=== PATIENT | female | born 1970 | race Caucasian/White ===

== ENCOUNTER 2021-07-29 15:23 | Inpatient (IN) | payer OTHER ==
[~2021-07-29] VITALS: Ht 171.4 cm; Wt 84.5 kg
[~2021-07-29 15:23] MED LIST: DEXT10TA23 PO; LAMO200T6 PO; LAMO25TA5 PO; LEVO125T5 PO; LEVO25TA55 PO; LORA0.5T96 PO; LORA1TAB PO; TRIA0.25 PO
[2021-07-29 16:05] LABS: HEMATOCRIT 40.7 % (36.0-47.0); HEMOGLOBIN 13.2 g/dL (12.0-15.5); MEAN CORPUSCULAR HEMOGLOBIN 27 pg (25-35); MEAN CORPUSCULAR HGB CONC 32 g/dL (31-37); MEAN CORPUSCULAR VOLUME 83 fL (79-100); NEUT % 69 % (31-73); PLATELET COUNT 334 x10^3/uL (140-400); RED BLOOD COUNT 4.89 x10^6/uL (3.50-5.40); RED CELL DISTRIBUTION WIDTH 16.2 % (11.5-14.5); WHITE BLOOD COUNT 8.6 x10^3/uL (4.0-11.0)
[2021-07-29 16:06] LABS: BASO # 0.1 x10^3/uL (0.0-0.2); BASO % 1 % (0-3); EOS # 0.1 x10^3/uL (0.0-0.7); EOS % 1 % (0-3); LYMPH # 2.1 x10^3/uL (1.0-4.8); LYMPH % 24 % (24-48); MONO # 0.5 x10^3/uL (0.0-1.1); MONO % 6 % (0-9); NEUT # 5.9 x10^3/uL (1.8-7.7)
[2021-07-29] MEDS ORDERED: IV NORMAL SALINE 1000ML BAG 1,000 ML IV ONE (16:15)
[2021-07-29 16:35] LABS: CALCIUM 9.4 mg/dL (8.5-10.1); GFR 58.9; POTASSIUM 3.5 mmol/L (3.5-5.1)
--- NOTE | 2021-07-29 16:35 | RAD ---
Single view chest dated 07/29/2021 4:32 PM: COMPARISON: 03/26/2017 Clinical Indication: Pain and shortness of breath. Findings: Single upright portable exam of the chest was performed. Heart size and mediastinal contours are with in normal limits. Lungs are clear. No consolidation or pleural effusion. No pneumothorax. IMPRESSION: No acute radiographic abnormality. Electronically signed by: Stefano Pineda MD (07/29/2021 4:33 PM) [facility]
[2021-07-29 16:41] LABS: ALBUMIN 4.4 g/dL (3.4-5.0); DIRECT BILIRUBIN 0.2 mg/dL (0.0-0.2); TOTAL BILIRUBIN 0.8 mg/dL (0.2-1.0); TOTAL PROTEIN 8.2 g/dL (6.4-8.2)
[2021-07-29] MEDS ORDERED: ASPIRIN 325 MG TABLET PO ONE (16:45)
[2021-07-29 16:51] LABS: PREG TEST PT QUAL NEGATIVE (NEG)
[2021-07-29] MEDS ORDERED: IOHEXOL 350 MG/ML 100 ML VIAL. IV ONE (17:00)
[2021-07-29] MEDS ORDERED: CONTRAST GIVEN. MC PRN (17:15)
--- NOTE | 2021-07-29 17:49 | RAD ---
CTA chest abdomen pelvis with contrast dated 07/29/2021. COMPARISON: None. INDICATION: Jaw pain and shortness of breath. TECHNIQUE: Continues axial imaging the chest abdomen pelvis performed after the administration of 100 cc Omnipaq ue 350. Study was performed as dedicated CTA with thin cut coronal and sagittal MIPS reconstruction a nd 3-D rotational reconstruction. One or more of the following individualized dose reduction techniques were utilized for this examinat ion: 1. Automated exposure control 2. Adjustment of the mA and/or kV according to patient size 3. Use of iterative reconstruction technique FINDINGS: Contrast bolus is adequate. Ascending aorta is normal in caliber. No intimal flap or periaortic fluid collection. Heart size within normal limits. No pericardial effusion. No mediastinal, hilar or axill myra lymphadenopathy. The great vessels off the aortic arch are patent. Abdominal aorta is normal in caliber. There are mild atherosclerotic calcifications of the abdominal aorta. No evidence of aneurysm or periaortic fluid collection. No intimal flap. There is moderate genie rowing of the celiac artery origin due to soft plaque. The SMA is patent. Bilateral renal arteries ar e grossly patent. MYLES is patent. The bilateral iliac vessels are patent. Central airways are patent. Lungs are clear. There is a noncalcified pulmonary nodule in the right lo wer lobe on image 79 measures 4 mm. No consolidation or pleural effusion. No pneumothorax. Liver and spleen are homogeneous. No focal hepatic mass. There is some low density near the falciform ligament consistent with focal fat. The gallbladder is unremarkable. Pancreas, adrenal glands and kidneys are unremarkable. No hydronephrosis. Unopacified GI tract normal in caliber and contour. No bowel wall thickening. The appendix is normal in caliber. No ascites or lymphadenopathy. Images of pelvis show nondistended urinary bladder. Uterus and adnexa are unremarkable. No free fluid or lymphadenopathy. Bone windows show no acute finding IMPRESSION: 1. No acute abnormality of chest abdomen or pelvis. No evidence of aortic dissection. 2. Mild atherosclerotic changes. 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 3. There is a small noncalcified pulmonary nodule in the right lower lobe, nonspecific. Follow-up myles ging may be warranted based on risk factors. Electronically signed by: Stefano Pineda MD (07/29/2021 5:46 PM) [facility]
--- NOTE | 2021-07-29 18:20 | PDOC1 ---
History and Physical Date of Admission Date of Admission DATE: 07/29/21 TIME: 18:19 Identification/Chief Complaint Chief Complaint Shortness of breath Source Source: Patient History of Present Illness History of Present Illness Ms Welch is a 50-year-old female w/ PMHx hyperlipidemia, hypothyroidism, anxiety and bipolar disorder who comes to ED c/o shortness of breath. She then complains of multiple other symptoms. She has had shortness of breath on exertion for the past 2 days prior to presentation with associated nausea, left- sided jaw pain, mild left-sided arm numbness, and diaphoresis. She has had epigastric abdominal pain for more than a month and will be seeing gastroenterology next week. Patient denies associated fevers, vomiting, upper respiratory congestion/rhinorrhea, cough, sore throat, shortness of breath, flank pain, back pain, pain or swelling to arms or legs. Vital signs are appropriate here and she is in no acute distress. EKG appears sinus rhythm, no acute ST elevation, minimal nonspecific, nonanatomic ST changes, SD 144, QRS 90, QTc 441, EP interpretation. Labs with no abnormalities. UDS positive for opiates and THC. CT chest abdomen and pelvis with no acute abnormalities Past Medical History Cardiovascular: Hyperlipidemia Psych: Anxiety, Bipolar Endocrine: Hypothyroidism Past Surgical History Past Surgical History: Tubal Ligation Family History Family History: High Cholestrol, Hypothyroidism Social History Smoke: No ALCOHOL: none Drugs: None Current Medications Current Medications Current Medications Aspirin (Ana Aspirin) 325 mg 1X ONCE PO Last administered on 07/29/21at 16:45; Start 07/29/21 at 16:45; Stop 07/29/21 at 16:46; Status DC Sodium Chloride 1,000 ml @ 1,000 mls/hr 1X ONCE IV Last administered on 07/29/21at 17:56; Start 07/29/21 at 16:15; Stop 07/29/21 at 17:14; Status DC Iohexol (Omnipaque 350 Mg/ml) 100 ml 1X ONCE IV Last administered on 07/29/21at 17:21; Start 07/29/21 at 17:00; Stop 07/29/21 at 17:01; Status DC Info (CONTRAST GIVEN -- Rx MONITORING) 1 each PRN DAILY PRN MC SEE COMMENTS; Start 07/29/21 at 17:15; Stop 07/31/21 at 17:14 Active Scripts Active Reported Halcion (Triazolam) 0.25 Mg Tablet 0.25 Mg PO HS Adderall 10 Mg Tablet (Dextroamphetamine/Amphetamine) 10 Mg Tablet 10 Mg PO BIDAFTMEAL PRN PRN Levothyroxine Sodium 125 Mcg Tablet 125 Mcg PO DAILYAC Lorazepam 1 Mg Tablet 1 Mg PO TID PRN PRN Lamotrigine 200 Mg Tablet 200 Mg PO BID Allergies Allergies: Coded Allergies: aspartame (Verified Allergy, Severe, TONGUE SWELLING, 03/26/17) saccharin (Verified Allergy, Severe, TONGUE SWELLING, 03/26/17) sucralose (Verified Allergy, Severe, TONGUE SWELLING, 03/26/17) quetiapine (Verified Adverse Reaction, Intermediate, restless legs, 03/26/17) zolpidem (Verified Adverse Reaction, Intermediate, restless legs, 03/26/17) ROS General: YES: Fatigue, Malaise; No: Chills, Night Sweats, Appetite, Other PSYCHOLOGICAL ROS: YES: Anxiety, Behavioral Disorder, Concentration difficultie , Depression, Irritablity, Memory difficulties, Mood Swings, Obsessive thoughts; No: Decreased libido, Disorientation, Hallucinations, Hostility, Physical abuse, Sexual abuse, Sleep disturbances, Suicidal ideation, Other Eyes: No Blurry vision, No Decreased vision, No Double vision, No Dry eyes, No Excessive tearing, No Eye Pain, No Itchy Eyes, No Loss of vision, No Photophobia, No Scotomata, No Uses contacts, No Uses glasses, No Other HEENT: No: Heacaches, Visual Changes, Hearing change, Nasal congestion, Nasal discharge, Oral lesions, Sinus pain, Sore Throat, Epistaxis, Sneezing, Snoring, Tinnitus, Vertigo, Vocal changes, Other ALLERGY AND IMMUNOLOGY: No: Hives, Insect Bite Sensitivity, Itchy/Watery Eyes, Nasal Congestion, Post Nasal Drip, Seasonal Allergies, Other Hematological and Lymphatic: No: Bleeding Problems, Blood Clots, Blood Transfusions, Brusing, Night Sweats, Pallor, Swollen Lymph Nodes, Other ENDOCRINE: No: Breast Changes, Galactorrhea, Hair Pattern Changes, Hot Flashes, Malaise/lethargy, Mood Swings, Palpitations, Polydipsia/polyuria, Skin Changes, Temperature Intolerance, Unexpected Weight Changes, Other Breast: No New/Changing Breast Lumps, No Nipple changes, No Nipple discharge, No Other Respiratory: YES: Shortness of breath, SOB with excertion; No: Cough, Hemoptysis, Orthopnea, Pleuritic Pain, Sputum Changes, Stridor, Tachypnea, Wheezing, Other Cardiovascular: yes Palpitations; No Chest Pain, No Orthopnea, No Paroxysmal Noc. Dyspnea, No Edema, No Lt Headedness, No Other Gastrointestinal: Yes Nausea, Yes Abdominal Pain; No Vomiting, No Diarrhea, No Constipation, No Melena, No Hematochezia, No Other Genitourinary: No Dysuria, No Frequency, No Incontinence, No Hematuria, No Retention, No Discharge, No Urgency, No Pain, No Flank Pain, No Other, No , No , No , No , No , No , No Musculoskeletal: No Gait Disturbance, No Joint Pain, No Joint Stiffness, No Joint Swelling, No Muscle Pain, No Muscular Weakness, No Pain In:, No Swelling In:, No Other Neurological: No Behavorial Changes, No Bowel/Bladder ControlChng, No Confusion, No Dizziness, No Gait Disturbance, No Headaches, No Impaired Coord/balance, No Memory Loss, No Numbness/Tingling, No Seizures, No Speech Problems, No Tremors, No Visual Changes, No Weakness, No Other Skin: No Dry Skin, No Eczema, No Hair Changes, No Lumps, No Mole Changes, No Mottling, No Nail Changes, No Pruritus, No Rash, No Skin Lesion Changes, No Other, No Acne Physical Exam General: Alert, Oriented X3, Cooperative, moderate distress HEENT: Atraumatic, PERRLA, EOMI, Mucous membr. moist/pink Lungs: Clear to auscultation, Normal air movement Heart: S1S2, RRR, no thrills, no rubs, no gallops, no murmurs Abdomen: Normal bowel sounds, Soft, No tenderness, No hepatosplenomegaly, No masses Rectal Exam: not examined Extremities: No clubbing, No cyanosis, No edema, Normal pulses, No tenderness/swelling Skin: No rashes, No breakdown, No significant lesion Neuro: Normal gait, Normal speech, Strength at 5/5 X4 ext, Normal tone, Sensation intact, Cranial nerves 3-12 NL, Reflexes 2+ Psych/Mental Status: Mental status NL, Mood NL, Other (circumferential, tangential, pressured speech) Vitals Vitals Vital Signs Date Time Temp Pulse Resp B/P (MAP) Pulse Ox O2 Delivery O2 Flow Rate FiO2 07/29/21 15:23 98.2 90 24 175/93 (120) 98 Room Air 98.2 Labs Labs Laboratory Tests Test 07/29/21 15:50 07/29/21 18:02 White Blood Count 8.6 x10^3/uL (4.0-11.0) Red Blood Count 4.89 x10^6/uL (3.50-5.40) Hemoglobin 13.2 g/dL (12.0-15.5) Hematocrit 40.7 % (36.0-47.0) Mean Corpuscular Volume 83 fL (79-100) Mean Corpuscular Hemoglobin 27 pg (25-35) Mean Corpuscular Hemoglobin Concent 32 g/dL (31-37) Red Cell Distribution Width 16.2 % (11.5-14.5) Platelet Count 334 x10^3/uL (140-400) Neutrophils (%) (Auto) 69 % (31-73) Lymphocytes (%) (Auto) 24 % (24-48) Monocytes (%) (Auto) 6 % (0-9) Eosinophils (%) (Auto) 1 % (0-3) Basophils (%) (Auto) 1 % (0-3) Neutrophils # (Auto) 5.9 x10^3/uL (1.8-7.7) Lymphocytes # (Auto) 2.1 x10^3/uL (1.0-4.8) Monocytes # (Auto) 0.5 x10^3/uL (0.0-1.1) Eosinophils # (Auto) 0.1 x10^3/uL (0.0-0.7) Basophils # (Auto) 0.1 x10^3/uL (0.0-0.2) Sodium Level 141 mmol/L (136-145) Potassium Level 3.5 mmol/L (3.5-5.1) Chloride Level 104 mmol/L (98-107) Carbon Dioxide Level 19 mmol/L (21-32) Anion Gap 18 (6-14) Blood Urea Nitrogen 12 mg/dL (7-20) Creatinine 1.0 mg/dL (0.6-1.0) Estimated GFR (Cockcroft-Gault) 58.9 Glucose Level 134 mg/dL (70-99) Calcium Level 9.4 mg/dL (8.5-10.1) Total Bilirubin 0.8 mg/dL (0.2-1.0) Direct Bilirubin 0.2 mg/dL (0.0-0.2) Aspartate Amino Transf (AST/SGOT) 11 U/L (15-37) Alanine Aminotransferase (ALT/SGPT) 21 U/L (14-59) Alkaline Phosphatase 61 U/L (46-116) Troponin I High Sensitivity 10 ng/L (4-50) Total Protein 8.2 g/dL (6.4-8.2) Albumin 4.4 g/dL (3.4-5.0) Serum Test, Qualitative Negative (NEG) Bedside Urine HCG, Qualitative Hcg negative (Negative) Laboratory Tests Test 07/29/21 15:50 07/29/21 18:02 White Blood Count 8.6 x10^3/uL (4.0-11.0) Red Blood Count 4.89 x10^6/uL (3.50-5.40) Hemoglobin 13.2 g/dL (12.0-15.5) Hematocrit 40.7 % (36.0-47.0) Mean Corpuscular Volume 83 fL (79-100) Mean Corpuscular Hemoglobin 27 pg (25-35) Mean Corpuscular Hemoglobin Concent 32 g/dL (31-37) Red Cell Distribution Width 16.2 % (11.5-14.5) Platelet Count 334 x10^3/uL (140-400) Neutrophils (%) (Auto) 69 % (31-73) Lymphocytes (%) (Auto) 24 % (24-48) Monocytes (%) (Auto) 6 % (0-9) Eosinophils (%) (Auto) 1 % (0-3) Basophils (%) (Auto) 1 % (0-3) Neutrophils # (Auto) 5.9 x10^3/uL (1.8-7.7) Lymphocytes # (Auto) 2.1 x10^3/uL (1.0-4.8) Monocytes # (Auto) 0.5 x10^3/uL (0.0-1.1) Eosinophils # (Auto) 0.1 x10^3/uL (0.0-0.7) Basophils # (Auto) 0.1 x10^3/uL (0.0-0.2) Sodium Level 141 mmol/L (136-145) Potassium Level 3.5 mmol/L (3.5-5.1) Chloride Level 104 mmol/L (98-107) Carbon Dioxide Level 19 mmol/L (21-32) Anion Gap 18 (6-14) Blood Urea Nitrogen 12 mg/dL (7-20) Creatinine 1.0 mg/dL (0.6-1.0) Estimated GFR (Cockcroft-Gault) 58.9 Glucose Level 134 mg/dL (70-99) Calcium Level 9.4 mg/dL (8.5-10.1) Total Bilirubin 0.8 mg/dL (0.2-1.0) Direct Bilirubin 0.2 mg/dL (0.0-0.2) Aspartate Amino Transf (AST/SGOT) 11 U/L (15-37) Alanine Aminotransferase (ALT/SGPT) 21 U/L (14-59) Alkaline Phosphatase 61 U/L (46-116) Troponin I High Sensitivity 10 ng/L (4-50) Total Protein 8.2 g/dL (6.4-8.2) Albumin 4.4 g/dL (3.4-5.0) Serum Test, Qualitative Negative (NEG) Bedside Urine HCG, Qualitative Hcg negative (Negative) Images Images CTA chest abdomen pelvis with contrast dated 07/29/2021. Contrast bolus is adequate. Ascending aorta is normal in caliber. No intimal flap or periaortic fluid collection. Heart size within normal limits. No pericardial effusion. No mediastinal, hilar or axillary lymphadenopathy. The great vessels off the aortic arch are patent. Abdominal aorta is normal in caliber. There are mild atherosclerotic calcifications of the abdominal aorta. No evidence of aneurysm or periaortic fluid collection. No intimal flap. There is moderate narrowing of the celiac artery origin due to soft plaque. The SMA is patent. Bilateral renal arteries are grossly patent. MYLES is patent. The bilateral iliac vessels are patent. Central airways are patent. Lungs are clear. There is a noncalcified pulmonary nodule in the right lower lobe on image 79 measures 4 mm. No consolidation or pleural effusion. No pneumothorax. Liver and spleen are homogeneous. No focal hepatic mass. There is some low density near the falciform ligament consistent with focal fat. The gallbladder is unremarkable. Pancreas, adrenal glands and kidneys are unremarkable. No hydronephrosis. Unopacified GI tract normal in caliber and contour. No bowel wall thickening. The appendix is normal in caliber. No ascites or lymphadenopathy. Images of pelvis show nondistended urinary bladder. Uterus and adnexa are unremarkable. No free fluid or lymphadenopathy. Bone windows show no acute finding IMPRESSION: 1. No acute abnormality of chest abdomen or pelvis. No evidence of aortic dissection. 2. Mild atherosclerotic changes. 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 3. There is a small noncalcified pulmonary nodule in the right lower lobe, nonspecific. Follow-up imaging may be warranted based on risk factors. VTE Prophylaxis Ordered VTE Prophylaxis Devices: No VTE Pharmacological Prophylaxi: Yes Assessment/Plan Assessment/Plan Shortness of breath - concerning for anginal equivalent given normal imaging and respiratory examination. Could be anxiety or somatization related as well Abdominal pain - possibly PUD related, will cont PPI. F/u with GI outpatient as scheduled Left leg pain - not reproducible on examination, negative andrea sign Hyperlipidemia - cont statin Hypothyroidism - cont levothyroxine Anxiety and bipolar disorder - previously on lamictal, she has taken herself off for no clear reason Opioid and THC positive urine - patient denies any use or prescriptions FEN - Cardiac diet PPX - lovenox FULL CODE Dispo - observation Justifications for Admission Other Justification JOHN LATIF MD Jul 29, 2021 18:20
[2021-07-29 18:23] LABS: BILIRUBIN,URINE NEGATIVE (NEG); CLARITY,URINE CLEAR; COLOR,URINE YELLOW
[2021-07-29 18:24] LABS: NITRITE,URINE NEGATIVE (NEG); PROTEIN,URINE 30 mg/dL (NEG-TRACE); UROBILINOGEN,URINE 0.2 mg/dL (0.2 mg/dL)
--- NOTE | 2021-07-29 18:25 | PHYS DOC ---
Past Medical History Past Medical History: Anxiety, Bipolar, Hyperthyroid, Other Additional Past Medical Histor: Bipolar II Past Surgical History: Tubal ligation Smoking Status: Never Smoker Alcohol Use: None Drug Use: None Adult General Chief Complaint Chief Complaint: SHORTNESS OF BREATH HPI HPI The patient is a 50-year-old female with a history of hyperlipidemia, hypothyr oidism and bipolar disorder who presents for evaluation of multiple symptoms with onset earlier today. Symptoms have included shortness of breath with minimal exertion, left-sided jaw pain, mild left-sided arm numbness, nausea, and intermittent diaphoresis. Patient reports that symptoms occur in the setting of intermittent upper abdominal pain for more than a month. She has not had any imaging or endoscopy for this issue yet but is supposed to see GI in the near future. Today she reports some lower abdominal pain on the left side in association with the symptoms mentioned above, new. This, she notes, has been mild. Patient denies associated fevers, vomiting, upper respiratory congestio n/rhinorrhea, cough, sore throat, shortness of breath, flank pain, back pain, pain or swelling to arms or legs. Vital signs are appropriate here and she is in no acute distress. Review of Systems Review of Systems A 12 point review of systems was completed and was negative except where noted in HPI above. Current Medications Current Medications Current Medications Medications (Trade) Dose Ordered Sig/Obed Start Time Stop Time Status Last Admin Dose Admin Aspirin (Ana Aspirin) 325 mg 1X ONCE 07/29/21 16:45 07/29/21 16:46 DC 07/29/21 16:45 325 MG Info (CONTRAST GIVEN -- Rx MONITORING) 1 each PRN DAILY PRN 07/29/21 17:15 07/31/21 17:14 Iohexol (Omnipaque 350 Mg/ml) 100 ml 1X ONCE 07/29/21 17:00 07/29/21 17:01 DC 07/29/21 17:21 100 ML Sodium Chloride 1,000 ml @ 1,000 mls/hr 1X ONCE 07/29/21 16:15 07/29/21 17:14 DC 07/29/21 17:56 1,000 MLS/HR Allergies Allergies Allergies Coded Allergies Type Severity Reaction Last Updated Verified aspartame Allergy Severe TONGUE SWELLING 03/26/17 Yes saccharin Allergy Severe TONGUE SWELLING 03/26/17 Yes sucralose Allergy Severe TONGUE SWELLING 03/26/17 Yes quetiapine Adverse Reaction Intermediate restless legs 03/26/17 Yes zolpidem Adverse Reaction Intermediate restless legs 03/26/17 Yes Physical Exam Physical Exam 50-year-old female appearing nontoxic and in no acute distress. Head is normocephalic and atraumatic. Neck is supple and nontender. Oropharynx is moist. Lungs are clear to auscultation at all stations. There is normal S1 and S2 without rubs or gallops and capillary refill is appropriate, less than 2 seconds globally. Abdomen is soft, nontender nondistended. Skin is warm and dry without cyanosis, clubbing or edema. Psychiatrically, the patient demonstrates appropriate mood and affect and is alert. Evaluation of the extremities reveals BUEs and BLEs neurovascularly intact distally with strength 5-5, sensation intact light touch in all nerve distributions, radial, DP and PT pulses 2+ equal bilaterally, capillary refill less than 2 seconds, hands and feet warm and well-perfused. No dependent peripheral edema distally. No calf tenderness or swelling bilaterally. Homans test is negative bilaterally. Current Patient Data Vital Signs Vital Signs Date Time Temp Pulse Resp B/P (MAP) Pulse Ox O2 Delivery O2 Flow Rate FiO2 07/29/21 15:23 98.2 90 24 175/93 (120) 98 Room Air 98.2 Lab Values Laboratory Tests Test 07/29/21 15:50 07/29/21 18:02 White Blood Count 8.6 x10^3/uL (4.0-11.0) Red Blood Count 4.89 x10^6/uL (3.50-5.40) Hemoglobin 13.2 g/dL (12.0-15.5) Hematocrit 40.7 % (36.0-47.0) Mean Corpuscular Volume 83 fL (79-100) Mean Corpuscular Hemoglobin 27 pg (25-35) Mean Corpuscular Hemoglobin Concent 32 g/dL (31-37) Red Cell Distribution Width 16.2 % (11.5-14.5) H Platelet Count 334 x10^3/uL (140-400) Neutrophils (%) (Auto) 69 % (31-73) Lymphocytes (%) (Auto) 24 % (24-48) Monocytes (%) (Auto) 6 % (0-9) Eosinophils (%) (Auto) 1 % (0-3) Basophils (%) (Auto) 1 % (0-3) Neutrophils # (Auto) 5.9 x10^3/uL (1.8-7.7) Lymphocytes # (Auto) 2.1 x10^3/uL (1.0-4.8) Monocytes # (Auto) 0.5 x10^3/uL (0.0-1.1) Eosinophils # (Auto) 0.1 x10^3/uL (0.0-0.7) Basophils # (Auto) 0.1 x10^3/uL (0.0-0.2) Sodium Level 141 mmol/L (136-145) Potassium Level 3.5 mmol/L (3.5-5.1) Chloride Level 104 mmol/L (98-107) Carbon Dioxide Level 19 mmol/L (21-32) L Anion Gap 18 (6-14) H Blood Urea Nitrogen 12 mg/dL (7-20) Creatinine 1.0 mg/dL (0.6-1.0) Estimated GFR (Cockcroft-Gault) 58.9 Glucose Level 134 mg/dL (70-99) H Calcium Level 9.4 mg/dL (8.5-10.1) Total Bilirubin 0.8 mg/dL (0.2-1.0) Direct Bilirubin 0.2 mg/dL (0.0-0.2) Aspartate Amino Transferase (AST) 11 U/L (15-37) L Alanine Aminotransferase (ALT) 21 U/L (14-59) Alkaline Phosphatase 61 U/L (46-116) Troponin I High Sensitivity 10 ng/L (4-50) Total Protein 8.2 g/dL (6.4-8.2) Albumin 4.4 g/dL (3.4-5.0) Serum Test, Qualitative Negative (NEG) POC Urine HCG, Qualitative Hcg negative (Negative) Laboratory Tests 07/29/21 15:50 Laboratory Tests 07/29/21 15:50 EKG EKG Sinus rhythm, no acute ST elevation, minimal nonspecific, nonanatomic ST changes, ID 144, QRS 90, QTc 441, EP interpretation. Radiology/Procedures Radiology/Procedures CTA chest abdomen pelvis with contrast dated 07/29/2021. COMPARISON: None. INDICATION: Jaw pain and shortness of breath. TECHNIQUE: Continues axial imaging the chest abdomen pelvis performed after the admini stration of 100 cc Omnipaque 350. Study was performed as dedicated CTA with thin cut coronal and sagittal MIPS reconstruction and 3-D rotational reconstruction. One or more of the following individualized dose reduction techniques were utilized for this examination: 1. Automated exposure control 2. Adjustment of the mA and/or kV according to patient size 3. Use of iterative reconstruction technique FINDINGS: Contrast bolus is adequate. Ascending aorta is normal in caliber. No intimal flap or periaortic fluid collection. Heart size within normal limits. No pericardial effusion. No mediastinal, hilar or axillary lymphadenopathy. The great vessels off the aortic arch are patent. Abdominal aorta is normal in caliber. There are mild atherosclerotic calcifications of the abdominal aorta. No evidence of aneurysm or periaortic fluid collection. No intimal flap. There is moderate narrowing of the celiac artery origin due to soft plaque. The SMA is patent. Bilateral renal arteries are grossly patent. MYLES is patent. The bilateral iliac vessels are patent. Central airways are patent. Lungs are clear. There is a noncalcified pulmonary nodule in the right lower lobe on image 79 measures 4 mm. No consolidation or pleural effusion. No pneumothorax. Liver and spleen are homogeneous. No focal hepatic mass. There is some low density near the falciform ligament consistent with focal fat. The gallbladder is unremarkable. Pancreas, adrenal glands and kidneys are unremarkable. No hydronephrosis. Unopacified GI tract normal in caliber and contour. No bowel wall thickening. The appendix is normal in caliber. No ascites or lymphadenopathy. Images of pelvis show nondistended urinary bladder. Uterus and adnexa are unremarkable. No free fluid or lymphadenopathy. Bone windows show no acute finding IMPRESSION: 1. No acute abnormality of chest abdomen or pelvis. No evidence of aortic dissection. 2. Mild atherosclerotic changes. 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 3. There is a small noncalcified pulmonary nodule in the right lower lobe, nonspecific. Follow-up imaging may be warranted based on risk factors. Electronically signed by: Stefano Pineda MD (07/29/2021 5:46 PM) [facility] [place] DICTATED and SIGNED BY: STEFANO PINEDA MD DATE: 07/29/21 [id number] [] Course & Med Decision Making Course & Med Decision Making Large work-up is without evidence of acute process. Given suspicious possibly anginalequivalent symptoms earlier today with exertion, will bring in for further care on an observation basis. Graciously accepted for admission by Dr. Noland. Suzanna Disclaimer Suzanna Disclaimer This electronic medical record was generated, in whole or in part, using a voice recognition dictation system. Departure Departure Impression: Primary Impression: Anginal equivalent Disposition: ADMITTED INPATIENT Condition: STABLE Referrals: NON,STAFF (PCP) ESME MTZ MD Jul 29, 2021 18:25
[2021-07-29 18:26] LABS: BACTERIA,URINE 0 /HPF (0-FEW); RBC,URINE 0 /HPF (0-2); WBC,URINE 0 /HPF (0-4)
[2021-07-29] MEDS ORDERED: ONDANSETRON PF 4 MG/2 ML VIAL. IVP PRN (18:30)
[2021-07-29] MEDS ORDERED: ACETAMINOPHEN 325 MG TABLET. PO PRN ×2 (18:30→19:00)
[2021-07-29] MEDS ORDERED: LIDO:MAALOX 1:1 20 ML SINGLE DOSE. SWSW ONE (19:15)
[2021-07-29 19:23] LABS: BARBITURATES NEG (NEG); BENZODIAZEPINES NEG (NEG); CANNABINOIDS POS (NEG); COCAINE NEG (NEG); METHADONE NEG (NEG); OPIATES POS (NEG); PHENCYCLIDINE NEG (NEG)
[2021-07-29 19:25] LABS: AMPHETAMINE/METHAMPHETAMINE NEG (NEG)
[2021-07-29 20:11] VITALS: BP 121/71
[2021-07-29 23:00] VITALS: BP 123/63
[2021-07-30 02:09] LABS: BASO % 1 % (0-3); EOS # 0.1 x10^3/uL (0.0-0.7); EOS % 1 % (0-3); HEMATOCRIT 36.9 % (36.0-47.0); HEMOGLOBIN 12.1 g/dL (12.0-15.5); LYMPH # 2.2 x10^3/uL (1.0-4.8); LYMPH % 28 % (24-48); MEAN CORPUSCULAR HEMOGLOBIN 27 pg (25-35); MEAN CORPUSCULAR HGB CONC 33 g/dL (31-37); MEAN CORPUSCULAR VOLUME 83 fL (79-100); MONO # 0.5 x10^3/uL (0.0-1.1); MONO % 7 % (0-9); NEUT # 5.1 x10^3/uL (1.8-7.7); NEUT % 64 % (31-73); PLATELET COUNT 288 x10^3/uL (140-400); RED BLOOD COUNT 4.48 x10^6/uL (3.50-5.40); RED CELL DISTRIBUTION WIDTH 15.9 % (11.5-14.5); WHITE BLOOD COUNT 7.9 x10^3/uL (4.0-11.0)
[2021-07-30 02:48] VITALS: BP 126/57
[2021-07-30 03:07] LABS: CALCIUM 8.5 mg/dL (8.5-10.1); CREATININE 0.9 mg/dL (0.6-1.0); GFR 66.5; POTASSIUM 3.5 mmol/L (3.5-5.1)
[2021-07-30] MEDS ORDERED: fentaNYL PF VIAL 100 MCG/2 ML VIAL IVP PRN (04:00)
[2021-07-30] MEDS: ONDANSETRON PF 4 MG/2 ML VIAL. IVP PRN (04:35)
[2021-07-30] MEDS: traMADol 50 MG TABLET PO PRN (06:37)
[2021-07-30 07:00] VITALS: BP 114/59
[2021-07-30] MEDS ORDERED: NITROGLYCERIN SUBLINGUAL 0.4 MG BOTTLE OF 25. SL PRN (07:00)
--- NOTE | 2021-07-30 09:38 | PDOC2 ---
CONSULT Date of Consult Date of Consult DATE: 07/30/21 TIME: 09:38 Reason for Consult Reason for Consult: Shortness of breath Referring Physician Referring Physician: Dr. Noland Identification/Chief Complaint Chief Complaint Abdominal pain and shortness of breath Source Source: Chart review, Patient History of Present Illness Reason for Visit: 50-year-old female without any previous cardiac history presented complaining of abdominal pain that she described as burning in sensation, constant without any relation to food intake. She also complained of associated shortness of breath not related to exertion. She has been having intermittent episodes of aching pain in her jaw, back pain and left arm tingling. The symptoms are also not related to exertion. She is currently scheduled to see gastroenterology team next week. She denied any orthopnea/PND, palpitations, syncope or claudication. Past Medical History Cardiovascular: Hyperlipidemia Psych: Anxiety, Bipolar Endocrine: Hypothyroidism Past Surgical History Past Surgical History: Tubal Ligation Family History Family History: High Cholestrol, Hypothyroidism Social History No ALCOHOL: none Drugs: None Current Problem List Problem List Problems Medical Problems: (1) Anginal equivalent Status: Acute Current Medications Current Medications Current Medications Aspirin (Ana Aspirin) 325 mg 1X ONCE PO Last administered on 07/29/21at 16:45; Start 07/29/21 at 16:45; Stop 07/29/21 at 16:46; Status DC Sodium Chloride 1,000 ml @ 1,000 mls/hr 1X ONCE IV Last administered on 07/29/21at 17:56; Start 07/29/21 at 16:15; Stop 07/29/21 at 17:14; Status DC Iohexol (Omnipaque 350 Mg/ml) 100 ml 1X ONCE IV Last administered on 07/29/21at 17:21; Start 07/29/21 at 17:00; Stop 07/29/21 at 17:01; Status DC Info (CONTRAST GIVEN -- Rx MONITORING) 1 each PRN DAILY PRN MC SEE COMMENTS; Start 07/29/21 at 17:15; Stop 07/31/21 at 17:14 Ondansetron HCl (Zofran) 4 mg PRN Q8HRS PRN IVP NAUSEA/VOMITING; Start 07/29/21 at 18:30; Stop 07/29/21 at 18:58; Status DC Acetaminophen (Tylenol) 650 mg PRN Q4HRS PRN PO FEVER > 100.3'F; Start 07/29/21 at 18:30; Stop 07/29/21 at 18:58; Status DC Ondansetron HCl (Zofran) 4 mg PRN Q4HRS PRN IVP NAUSEA/VOMITING Last administered on 07/30/21at 04:35; Start 07/29/21 at 19:00 Acetaminophen (Tylenol) 650 mg PRN Q6HRS PRN PO FEVER > 100.3'F; Start 07/29/21 at 19:00 Multi-Ingredient Mouthwash/Gargle (Gi Cocktail) 20 ml 1X ONCE SWSW Last administered on 07/29/21at 19:31; Start 07/29/21 at 19:15; Stop 07/29/21 at 19:16; Status DC Fentanyl Citrate (Fentanyl 2ml Vial) 25 mcg PRN Q3HRS PRN IVP SEVERE PAIN 7-10 Last administered on 07/30/21at 04:35; Start 07/30/21 at 04:00 Tramadol HCl (Ultram) 50 mg PRN Q6HRS PRN PO PAIN Last administered on 07/30/21at 06:37; Start 07/30/21 at 04:00 Nitroglycerin (Nitrostat) 0.4 mg PRN Q5MIN PRN SL CHEST PAIN; Start 07/30/21 at 07:00 Active Scripts Active Reported Halcion (Triazolam) 0.25 Mg Tablet 0.25 Mg PO HS Adderall 10 Mg Tablet (Dextroamphetamine/Amphetamine) 10 Mg Tablet 10 Mg PO BIDAFTMEAL PRN PRN Levothyroxine Sodium 125 Mcg Tablet 125 Mcg PO DAILYAC Lorazepam 1 Mg Tablet 1 Mg PO TID PRN PRN Lamotrigine 200 Mg Tablet 200 Mg PO BID Allergies Allergies: Coded Allergies: aspartame (Verified Allergy, Severe, TONGUE SWELLING, 03/26/17) saccharin (Verified Allergy, Severe, TONGUE SWELLING, 03/26/17) sucralose (Verified Allergy, Severe, TONGUE SWELLING, 03/26/17) quetiapine (Verified Adverse Reaction, Intermediate, restless legs, 03/26/17) zolpidem (Verified Adverse Reaction, Intermediate, restless legs, 03/26/17) ROS PSYCHOLOGICAL ROS: No: Hallucinations Eyes: No Loss of vision HEENT: No: Epistaxis ENDOCRINE: No: Palpitations Respiratory: YES: Shortness of breath; No: Hemoptysis Cardiovascular: yes Chest Pain Gastrointestinal: Yes Abdominal Pain Genitourinary: No Hematuria Neurological: No Seizures Skin: No Rash Physical Exam General: Alert, Oriented X3 HEENT: Atraumatic Lungs: Clear to auscultation Heart: Regular rate Abdomen: Soft Extremities: No edema Neuro: Normal speech Psych/Mental Status: Mood NL Vitals VITALS Vital Signs Date Time Temp Pulse Resp B/P (MAP) Pulse Ox O2 Delivery O2 Flow Rate FiO2 07/30/21 07:07 18 97 Room Air 07/30/21 07:00 97.9 65 114/59 (77) 97.9 Labs Labs Laboratory Tests Test 07/29/21 15:50 07/29/21 15:53 07/29/21 18:02 07/29/21 19:05 White Blood Count 8.6 x10^3/uL (4.0-11.0) Red Blood Count 4.89 x10^6/uL (3.50-5.40) Hemoglobin 13.2 g/dL (12.0-15.5) Hematocrit 40.7 % (36.0-47.0) Mean Corpuscular Volume 83 fL (79-100) Mean Corpuscular Hemoglobin 27 pg (25-35) Mean Corpuscular Hemoglobin Concent 32 g/dL (31-37) Red Cell Distribution Width 16.2 % (11.5-14.5) Platelet Count 334 x10^3/uL (140-400) Neutrophils (%) (Auto) 69 % (31-73) Lymphocytes (%) (Auto) 24 % (24-48) Monocytes (%) (Auto) 6 % (0-9) Eosinophils (%) (Auto) 1 % (0-3) Basophils (%) (Auto) 1 % (0-3) Neutrophils # (Auto) 5.9 x10^3/uL (1.8-7.7) Lymphocytes # (Auto) 2.1 x10^3/uL (1.0-4.8) Monocytes # (Auto) 0.5 x10^3/uL (0.0-1.1) Eosinophils # (Auto) 0.1 x10^3/uL (0.0-0.7) Basophils # (Auto) 0.1 x10^3/uL (0.0-0.2) Sodium Level 141 mmol/L (136-145) Potassium Level 3.5 mmol/L (3.5-5.1) Chloride Level 104 mmol/L (98-107) Carbon Dioxide Level 19 mmol/L (21-32) Anion Gap 18 (6-14) Blood Urea Nitrogen 12 mg/dL (7-20) Creatinine 1.0 mg/dL (0.6-1.0) Estimated GFR (Cockcroft-Gault) 58.9 Glucose Level 134 mg/dL (70-99) Calcium Level 9.4 mg/dL (8.5-10.1) Total Bilirubin 0.8 mg/dL (0.2-1.0) Direct Bilirubin 0.2 mg/dL (0.0-0.2) Aspartate Amino Transf (AST/SGOT) 11 U/L (15-37) Alanine Aminotransferase (ALT/SGPT) 21 U/L (14-59) Alkaline Phosphatase 61 U/L (46-116) Troponin I High Sensitivity 10 ng/L (4-50) 11 ng/L (4-50) Total Protein 8.2 g/dL (6.4-8.2) Albumin 4.4 g/dL (3.4-5.0) Serum Test, Qualitative Negative (NEG) Urine Collection Type Unknown Urine Color Yellow Urine Clarity Clear Urine pH 6.0 (<5.0-8.0) Urine Specific [place] 1.020 (1.000-1.030) Urine Protein 30 mg/dL (NEG-TRACE) Urine Glucose (UA) Negative mg/dL (NEG) Urine Ketones (Stick) 40 mg/dL (NEG) Urine Blood Negative (NEG) Urine Nitrite Negative (NEG) Urine Bilirubin Negative (NEG) Urine Urobilinogen Dipstick 0.2 mg/dL (0.2 mg/dL) Urine Leukocyte Esterase Negative (NEG) Urine RBC 0 /HPF (0-2) Urine WBC 0 /HPF (0-4) Urine Squamous Epithelial Cells Few /LPF Urine Bacteria 0 /HPF (0-FEW) Urine Mucus Mod /LPF Urine Opiates Screen Pos (NEG) Urine Methadone Screen Neg (NEG) Urine Barbiturates Neg (NEG) Urine Phencyclidine Screen Neg (NEG) Urine Amphetamine/Methamphetamine Neg (NEG) Urine Benzodiazepines Screen Neg (NEG) Urine Cocaine Screen Neg (NEG) Urine Cannabinoids Screen Pos (NEG) Urine Ethyl Alcohol Neg (NEG) Bedside Urine HCG, Qualitative Hcg negative (Negative) Test 07/30/21 01:25 White Blood Count 7.9 x10^3/uL (4.0-11.0) Red Blood Count 4.48 x10^6/uL (3.50-5.40) Hemoglobin 12.1 g/dL (12.0-15.5) Hematocrit 36.9 % (36.0-47.0) Mean Corpuscular Volume 83 fL (79-100) Mean Corpuscular Hemoglobin 27 pg (25-35) Mean Corpuscular Hemoglobin Concent 33 g/dL (31-37) Red Cell Distribution Width 15.9 % (11.5-14.5) Platelet Count 288 x10^3/uL (140-400) Neutrophils (%) (Auto) 64 % (31-73) Lymphocytes (%) (Auto) 28 % (24-48) Monocytes (%) (Auto) 7 % (0-9) Eosinophils (%) (Auto) 1 % (0-3) Basophils (%) (Auto) 1 % (0-3) Neutrophils # (Auto) 5.1 x10^3/uL (1.8-7.7) Lymphocytes # (Auto) 2.2 x10^3/uL (1.0-4.8) Monocytes # (Auto) 0.5 x10^3/uL (0.0-1.1) Eosinophils # (Auto) 0.1 x10^3/uL (0.0-0.7) Basophils # (Auto) 0.0 x10^3/uL (0.0-0.2) Sodium Level 144 mmol/L (136-145) Potassium Level 3.5 mmol/L (3.5-5.1) Chloride Level 109 mmol/L (98-107) Carbon Dioxide Level 27 mmol/L (21-32) Anion Gap 8 (6-14) Blood Urea Nitrogen 11 mg/dL (7-20) Creatinine 0.9 mg/dL (0.6-1.0) Estimated GFR (Cockcroft-Gault) 66.5 Glucose Level 122 mg/dL (70-99) Calcium Level 8.5 mg/dL (8.5-10.1) Troponin I High Sensitivity 13 ng/L (4-50) Laboratory Tests Test 07/29/21 15:50 07/29/21 15:53 07/29/21 18:02 07/29/21 19:05 White Blood Count 8.6 x10^3/uL (4.0-11.0) Red Blood Count 4.89 x10^6/uL (3.50-5.40) Hemoglobin 13.2 g/dL (12.0-15.5) Hematocrit 40.7 % (36.0-47.0) Mean Corpuscular Volume 83 fL (79-100) Mean Corpuscular Hemoglobin 27 pg (25-35) Mean Corpuscular Hemoglobin Concent 32 g/dL (31-37) Red Cell Distribution Width 16.2 % (11.5-14.5) Platelet Count 334 x10^3/uL (140-400) Neutrophils (%) (Auto) 69 % (31-73) Lymphocytes (%) (Auto) 24 % (24-48) Monocytes (%) (Auto) 6 % (0-9) Eosinophils (%) (Auto) 1 % (0-3) Basophils (%) (Auto) 1 % (0-3) Neutrophils # (Auto) 5.9 x10^3/uL (1.8-7.7) Lymphocytes # (Auto) 2.1 x10^3/uL (1.0-4.8) Monocytes # (Auto) 0.5 x10^3/uL (0.0-1.1) Eosinophils # (Auto) 0.1 x10^3/uL (0.0-0.7) Basophils # (Auto) 0.1 x10^3/uL (0.0-0.2) Sodium Level 141 mmol/L (136-145) Potassium Level 3.5 mmol/L (3.5-5.1) Chloride Level 104 mmol/L (98-107) Carbon Dioxide Level 19 mmol/L (21-32) Anion Gap 18 (6-14) Blood Urea Nitrogen 12 mg/dL (7-20) Creatinine 1.0 mg/dL (0.6-1.0) Estimated GFR (Cockcroft-Gault) 58.9 Glucose Level 134 mg/dL (70-99) Calcium Level 9.4 mg/dL (8.5-10.1) Total Bilirubin 0.8 mg/dL (0.2-1.0) Direct Bilirubin 0.2 mg/dL (0.0-0.2) Aspartate Amino Transf (AST/SGOT) 11 U/L (15-37) Alanine Aminotransferase (ALT/SGPT) 21 U/L (14-59) Alkaline Phosphatase 61 U/L (46-116) Troponin I High Sensitivity 10 ng/L (4-50) 11 ng/L (4-50) Total Protein 8.2 g/dL (6.4-8.2) Albumin 4.4 g/dL (3.4-5.0) Serum Test, Qualitative Negative (NEG) Urine Collection Type Unknown Urine Color Yellow Urine Clarity Clear Urine pH 6.0 (<5.0-8.0) Urine Specific [place] 1.020 (1.000-1.030) Urine Protein 30 mg/dL (NEG-TRACE) Urine Glucose (UA) Negative mg/dL (NEG) Urine Ketones (Stick) 40 mg/dL (NEG) Urine Blood Negative (NEG) Urine Nitrite Negative (NEG) Urine Bilirubin Negative (NEG) Urine Urobilinogen Dipstick 0.2 mg/dL (0.2 mg/dL) Urine Leukocyte Esterase Negative (NEG) Urine RBC 0 /HPF (0-2) Urine WBC 0 /HPF (0-4) Urine Squamous Epithelial Cells Few /LPF Urine Bacteria 0 /HPF (0-FEW) Urine Mucus Mod /LPF Urine Opiates Screen Pos (NEG) Urine Methadone Screen Neg (NEG) Urine Barbiturates Neg (NEG) Urine Phencyclidine Screen Neg (NEG) Urine Amphetamine/Methamphetamine Neg (NEG) Urine Benzodiazepines Screen Neg (NEG) Urine Cocaine Screen Neg (NEG) Urine Cannabinoids Screen Pos (NEG) Urine Ethyl Alcohol Neg (NEG) Bedside Urine HCG, Qualitative Hcg negative (Negative) Test 07/30/21 01:25 White Blood Count 7.9 x10^3/uL (4.0-11.0) Red Blood Count 4.48 x10^6/uL (3.50-5.40) Hemoglobin 12.1 g/dL (12.0-15.5) Hematocrit 36.9 % (36.0-47.0) Mean Corpuscular Volume 83 fL (79-100) Mean Corpuscular Hemoglobin 27 pg (25-35) Mean Corpuscular Hemoglobin Concent 33 g/dL (31-37) Red Cell Distribution Width 15.9 % (11.5-14.5) Platelet Count 288 x10^3/uL (140-400) Neutrophils (%) (Auto) 64 % (31-73) Lymphocytes (%) (Auto) 28 % (24-48) Monocytes (%) (Auto) 7 % (0-9) Eosinophils (%) (Auto) 1 % (0-3) Basophils (%) (Auto) 1 % (0-3) Neutrophils # (Auto) 5.1 x10^3/uL (1.8-7.7) Lymphocytes # (Auto) 2.2 x10^3/uL (1.0-4.8) Monocytes # (Auto) 0.5 x10^3/uL (0.0-1.1) Eosinophils # (Auto) 0.1 x10^3/uL (0.0-0.7) Basophils # (Auto) 0.0 x10^3/uL (0.0-0.2) Sodium Level 144 mmol/L (136-145) Potassium Level 3.5 mmol/L (3.5-5.1) Chloride Level 109 mmol/L (98-107) Carbon Dioxide Level 27 mmol/L (21-32) Anion Gap 8 (6-14) Blood Urea Nitrogen 11 mg/dL (7-20) Creatinine 0.9 mg/dL (0.6-1.0) Estimated GFR (Cockcroft-Gault) 66.5 Glucose Level 122 mg/dL (70-99) Calcium Level 8.5 mg/dL (8.5-10.1) Troponin I High Sensitivity 13 ng/L (4-50) Assessment/Plan Assessment/Plan 1. Shortness of breath, most probably secondary to anxiety but she does not have any clinical evidence of fluid overload. Myocardial infarction ruled out based on cardiac enzymes. Doubt ACS. We will plan for 2D echo and ischemic evaluation as an outpatient. 2. Abdominal pain: Follow-up with gastroenterology team as previously scheduled 3. Hyperlipidemia: Continue statins 4. Hypothyroidism: Continue levothyroxine 5. Anxiety and bipolar disorder: Continue current treatment Thank you. Medication ALICIA PETERSON MD Jul 30, 2021 09:38
[2021-07-30] MEDS: lamoTRIgine 100 MG TABLET. PO SCH ×2 (10:00→21:14)
[2021-07-30 10:56] VITALS: BP 122/61
[2021-07-30] MEDS ORDERED: LIDO:MAALOX 1:1 20 ML SINGLE DOSE. PO PRN (11:00)
--- NOTE | 2021-07-30 12:24 | PDOC ---
GENERAL General: Patient examined chart reviewed discussed with at bedside and nursing at length. Patient admitted yesterday with a number of complaints most significant of which is chest pain with left arm numbness and weakness. She suffers with bipolar disorder, attention deficit disorder, and severe anxiety. She sees Dr. Taylor psychiatry regularly as well as Dr. Ashley Mcclure at [facility]. Her is a retired and they have insurance. She has been working with her primary care physician on a number of symptoms most significant of which has been abdominal bloating and pain along with 26 pound weight loss over the last 4 months. She denies having had COVID. Her last two of her Moderna vaccines was in October 2020. had Covid in early May and was mild patient did not become ill at that point. Her symptoms seem to escalate over the last several days. She is inconsolable this afternoon and worried ab out leaving without more assessment. Her CT chest, abdomen, and pelvis have been noncontributory. She is also having significant mid and low back pain with occasional paresthesias in all of her limbs. She has been seen by cardiology and cleared for discharge. She is not wanting to leave without more evaluation. Another problem is that her primary care physician at [facility] has gotten a [facility] authorization for an upper endoscopy with Dr. Burns but not a office visit. She called Dr. Burns's office and the next visit was not available for 4 months. She is distraught wanting to ensure that she is able to be assessed prior to that time. She is trying to eat but continues to be nauseated. She has significant abdominal bloating that is causing her a lot of distress. She was constipated in the past and now tends to have more diarrhea. I agree that a GI consultation prior to discharge will be critical in further elucidating her ordeal. We will also proceed with low back x-ray to further evaluate. All other systems reviewed and otherwise negative. Time spent today is 30 minutes with greater than 50% in counseling and coordination of care most of which in discussion with patient, , and nursing regarding care plan and progress. Problems: (1) Weakness (2) Chest pain (3) Weight loss (4) Bipolar 1 disorder, mixed (5) Anxiety (6) Panic anxiety syndrome (7) Back pain VITAL SIGNS Vital Signs/I&O: Vital Signs Date Time Temp Pulse Resp B/P (MAP) Pulse Ox O2 Delivery O2 Flow Rate FiO2 07/30/21 10:56 97.9 67 18 122/61 (81) 97 Room Air 97.9 I & O 07/29/21 07/29/21 07/30/21 15:00 23:00 07:00 Intake Total 1000 ml 320 ml Balance 1000 ml 320 ml In general the patient is tearful anxious crying often throughout the visit little tangential but alert and oriented x3 and otherwise in no acute distress HEENT exam is unremarkable for acute abnormality Neck is soft and supple no adenopathy or thyromegaly noted Chest is clear to auscultation Heart S1-S2 normal regular rate and rhythm no murmurs or gallops are noted Abdomen distended soft nontender no masses or organomegaly noted Extremity exam is unremarkable for acute abnormality ALLERGIES Allergies: Allergies Coded Allergies Type Severity Reaction Last Updated Verified aspartame Allergy Severe TONGUE SWELLING 03/26/17 Yes saccharin Allergy Severe TONGUE SWELLING 03/26/17 Yes sucralose Allergy Severe TONGUE SWELLING 03/26/17 Yes quetiapine Adverse Reaction Intermediate restless legs 03/26/17 Yes zolpidem Adverse Reaction Intermediate restless legs 03/26/17 Yes MEDS Medications: Current Medications Medications (Trade) Dose Ordered Sig/Obed Start Time Stop Time Status Last Admin Dose Admin Acetaminophen (Tylenol) 650 mg PRN Q6HRS PRN 07/29/21 19:00 Aspirin (Ana Aspirin) 325 mg 1X ONCE 07/29/21 16:45 07/29/21 16:46 DC 07/29/21 16:45 Fentanyl Citrate (Fentanyl 2ml Vial) 25 mcg PRN Q3HRS PRN 07/30/21 04:00 07/30/21 04:35 Info (CONTRAST GIVEN -- Rx MONITORING) 1 each PRN DAILY PRN 07/29/21 17:15 07/31/21 17:14 Iohexol (Omnipaque 350 Mg/ml) 100 ml 1X ONCE 07/29/21 17:00 07/29/21 17:01 DC 07/29/21 17:21 Lamotrigine (LaMICtal) 200 mg BID 07/30/21 10:00 Levothyroxine Sodium (Synthroid) 125 mcg DAILYAC 07/31/21 07:30 Lorazepam (Ativan) 1 mg TID PRN PRN 07/30/21 09:45 Multi-Ingredient Mouthwash/Gargle (Gi Cocktail) 20 ml PRN QID PRN 07/30/21 11:00 Nitroglycerin (Nitrostat) 0.4 mg PRN Q5MIN PRN 07/30/21 07:00 Ondansetron HCl (Zofran) 4 mg PRN Q4HRS PRN 07/29/21 19:00 07/30/21 04:35 Sodium Chloride 1,000 ml @ 1,000 mls/hr 1X ONCE 07/29/21 16:15 07/29/21 17:14 DC 07/29/21 17:56 Tramadol HCl (Ultram) 50 mg PRN Q6HRS PRN 07/30/21 04:00 07/30/21 06:37 Current Medications Medications (Trade) Dose Ordered Sig/Obed Route PRN Reason Start Time Stop Time Status Last Admin Dose Admin Aspirin (Ana Aspirin) 325 mg 1X ONCE PO 07/29/21 16:45 07/29/21 16:46 DC 07/29/21 16:45 Sodium Chloride 1,000 ml @ 1,000 mls/hr 1X ONCE IV 07/29/21 16:15 07/29/21 17:14 DC 07/29/21 17:56 Iohexol (Omnipaque 350 Mg/ml) 100 ml 1X ONCE IV 07/29/21 17:00 07/29/21 17:01 DC 07/29/21 17:21 Ondansetron HCl (Zofran) 4 mg PRN Q4HRS PRN IVP NAUSEA/VOMITING 07/29/21 19:00 07/30/21 04:35 Multi-Ingredient Mouthwash/Gargle (Gi Cocktail) 20 ml 1X ONCE SWSW 07/29/21 19:15 07/29/21 19:16 DC 07/29/21 19:31 Fentanyl Citrate (Fentanyl 2ml Vial) 25 mcg PRN Q3HRS PRN IVP SEVERE PAIN 7-10 07/30/21 04:00 07/30/21 04:35 Tramadol HCl (Ultram) 50 mg PRN Q6HRS PRN PO PAIN 07/30/21 04:00 07/30/21 06:37 LAB Lab: Laboratory Tests Test 07/29/21 15:50 07/29/21 15:53 07/29/21 18:02 07/29/21 19:05 White Blood Count 8.6 x10^3/uL (4.0-11.0) Red Blood Count 4.89 x10^6/uL (3.50-5.40) Hemoglobin 13.2 g/dL (12.0-15.5) Hematocrit 40.7 % (36.0-47.0) Mean Corpuscular Volume 83 fL (79-100) Mean Corpuscular Hemoglobin 27 pg (25-35) Mean Corpuscular Hemoglobin Concent 32 g/dL (31-37) Red Cell Distribution Width 16.2 % (11.5-14.5) H Platelet Count 334 x10^3/uL (140-400) Neutrophils (%) (Auto) 69 % (31-73) Lymphocytes (%) (Auto) 24 % (24-48) Monocytes (%) (Auto) 6 % (0-9) Eosinophils (%) (Auto) 1 % (0-3) Basophils (%) (Auto) 1 % (0-3) Neutrophils # (Auto) 5.9 x10^3/uL (1.8-7.7) Lymphocytes # (Auto) 2.1 x10^3/uL (1.0-4.8) Monocytes # (Auto) 0.5 x10^3/uL (0.0-1.1) Eosinophils # (Auto) 0.1 x10^3/uL (0.0-0.7) Basophils # (Auto) 0.1 x10^3/uL (0.0-0.2) Sodium Level 141 mmol/L (136-145) Potassium Level 3.5 mmol/L (3.5-5.1) Chloride Level 104 mmol/L (98-107) Carbon Dioxide Level 19 mmol/L (21-32) L Anion Gap 18 (6-14) H Blood Urea Nitrogen 12 mg/dL (7-20) Creatinine 1.0 mg/dL (0.6-1.0) Estimated GFR (Cockcroft-Gault) 58.9 Glucose Level 134 mg/dL (70-99) H Calcium Level 9.4 mg/dL (8.5-10.1) Total Bilirubin 0.8 mg/dL (0.2-1.0) Direct Bilirubin 0.2 mg/dL (0.0-0.2) Aspartate Amino Transferase (AST) 11 U/L (15-37) L Alanine Aminotransferase (ALT) 21 U/L (14-59) Alkaline Phosphatase 61 U/L (46-116) Troponin I High Sensitivity 10 ng/L (4-50) 11 ng/L (4-50) Total Protein 8.2 g/dL (6.4-8.2) Albumin 4.4 g/dL (3.4-5.0) Serum Test, Qualitative Negative (NEG) Urine Collection Type Unknown Urine Color Yellow Urine Clarity Clear Urine pH 6.0 (<5.0-8.0) Urine Specific [place] 1.020 (1.000-1.030) Urine Protein 30 mg/dL (NEG-TRACE) Urine Glucose (UA) Negative mg/dL (NEG) Urine Ketones (Stick) 40 mg/dL (NEG) Urine Blood Negative (NEG) Urine Nitrite Negative (NEG) Urine Bilirubin Negative (NEG) Urine Urobilinogen Dipstick 0.2 mg/dL (0.2 mg/dL) Urine Leukocyte Esterase Negative (NEG) Urine RBC 0 /HPF (0-2) Urine WBC 0 /HPF (0-4) Urine Squamous Epithelial Cells Few /LPF Urine Bacteria 0 /HPF (0-FEW) Urine Mucus Mod /LPF Urine Opiates Screen Pos (NEG) Urine Methadone Screen Neg (NEG) Urine Barbiturates Neg (NEG) Urine Phencyclidine Screen Neg (NEG) Urine Amphetamine/Methamphetamine Neg (NEG) Urine Benzodiazepines Screen Neg (NEG) Urine Cocaine Screen Neg (NEG) Urine Cannabinoids Screen Pos (NEG) Urine Ethyl Alcohol Neg (NEG) POC Urine HCG, Qualitative Hcg negative (Negative) Test 07/30/21 01:25 White Blood Count 7.9 x10^3/uL (4.0-11.0) Red Blood Count 4.48 x10^6/uL (3.50-5.40) Hemoglobin 12.1 g/dL (12.0-15.5) Hematocrit 36.9 % (36.0-47.0) Mean Corpuscular Volume 83 fL (79-100) Mean Corpuscular Hemoglobin 27 pg (25-35) Mean Corpuscular Hemoglobin Concent 33 g/dL (31-37) Red Cell Distribution Width 15.9 % (11.5-14.5) H Platelet Count 288 x10^3/uL (140-400) Neutrophils (%) (Auto) 64 % (31-73) Lymphocytes (%) (Auto) 28 % (24-48) Monocytes (%) (Auto) 7 % (0-9) Eosinophils (%) (Auto) 1 % (0-3) Basophils (%) (Auto) 1 % (0-3) Neutrophils # (Auto) 5.1 x10^3/uL (1.8-7.7) Lymphocytes # (Auto) 2.2 x10^3/uL (1.0-4.8) Monocytes # (Auto) 0.5 x10^3/uL (0.0-1.1) Eosinophils # (Auto) 0.1 x10^3/uL (0.0-0.7) Basophils # (Auto) 0.0 x10^3/uL (0.0-0.2) Sodium Level 144 mmol/L (136-145) Potassium Level 3.5 mmol/L (3.5-5.1) Chloride Level 109 mmol/L (98-107) H Carbon Dioxide Level 27 mmol/L (21-32) Anion Gap 8 (6-14) Blood Urea Nitrogen 11 mg/dL (7-20) Creatinine 0.9 mg/dL (0.6-1.0) Estimated GFR (Cockcroft-Gault) 66.5 Glucose Level 122 mg/dL (70-99) H Calcium Level 8.5 mg/dL (8.5-10.1) Troponin I High Sensitivity 13 ng/L (4-50) Laboratory Tests 07/29/21 15:50 07/30/21 01:25 Laboratory Tests 07/29/21 15:50 07/30/21 01:25 ASSESSMENT & PLAN A&P Plan as noted above This note was created using [employer] and may have omissions and/or errors due to the nature of real-time voice director of rooms. Justifications for Admission Other Justification GRACE SIERRA MD Jul 30, 2021 12:24
[2021-07-30] MEDS ORDERED: SIMETHICONE 80 MG TAB.CHEW PO PRN (12:30)
[2021-07-30] MEDS: PANTOPRAZOLE 40 MG TABLET.DR. PO SCH ×2 (12:47→16:55)
[2021-07-30] MEDS ORDERED: DICYCLOMINE HCL 10 MG CAPSULE PO PRN (14:30)
--- NOTE | 2021-07-30 14:33 | PDOC2 ---
GI CONSULT Reason For Consult: chest pain HPI: HPI: 50-year-old female w/ PMHx hyperlipidemia, hypothyroidism, anxiety and bipolar disorder who comes to ED c/o shortness of breath. She then complains of multiple other symptoms. She has had shortness of breath on exertion for the past 2 days prior to presentation with associated nausea, left-sided jaw pain, mild left- sided arm numbness, and diaphoresis. She has had epigastric pain radiating to her back abdominal pain for more than a month. She also described spots of pain throughpout her abdomen. Her symptoms are worse when she eats spicy food, drinks coffee or drinks ice water. She reports a soft BM every day at 3 am. She has lost 26 lbs in 4 months despite eating 4 lbs of chocolate in 2 days. She had a [place] at [facility] [place] that was reportedly unrevealing. She denies NSAIDs or a FMH of colon cancer. Patient denies associated fevers, vomiting, upper respiratory congestion/r hinorrhea, cough, sore throat,. EKG appears sinus rhythm, no acute ST elevation, minimal nonspecific, nonanatomic ST changes, TX 144, QRS 90, QTc 441, EP interpretation. Labs with no abnormalities. UDS positive for opiates and THC. LFTs and CBC unrevealing. 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 She has been cleared from a cardiac standpoint PMH: PMH: Past Medical History Cardiovascular: Hyperlipidemia Psych: Anxiety, Bipolar Endocrine: Hypothyroidism Past Surgical History Past Surgical History: Tubal Ligation Family History Family History: High Cholestrol, Hypothyroidism Social History Smoke: No ALCOHOL: none Drugs: None Current Medications Current Medications Current Medications Aspirin (Ana Aspirin) 325 mg 1X ONCE PO Last administered on 07/29/21at 16:45; Start 07/29/21 at 16:45; Stop 07/29/21 at 16:46; Status DC Sodium Chloride 1,000 ml @ 1,000 mls/hr 1X ONCE IV Last administered on 07/29/21at 17:56; Start 07/29/21 at 16:15; Stop 07/29/21 at 17:14; Status DC Iohexol (Omnipaque 350 Mg/ml) 100 ml 1X ONCE IV Last administered on 07/29/21at 17:21; Start 07/29/21 at 17:00; Stop 07/29/21 at 17:01; Status DC Info (CONTRAST GIVEN -- Rx MONITORING) 1 each PRN DAILY PRN MC SEE COMMENTS; Start 07/29/21 at 17:15; Stop 07/31/21 at 17:14 Active Scripts Active Reported Halcion (Triazolam) 0.25 Mg Tablet 0.25 Mg PO HS Adderall 10 Mg Tablet (Dextroamphetamine/Amphetamine) 10 Mg Tablet 10 Mg PO BIDAFTMEAL PRN PRN Levothyroxine Sodium 125 Mcg Tablet 125 Mcg PO DAILYAC Lorazepam 1 Mg Tablet 1 Mg PO TID PRN PRN Lamotrigine 200 Mg Tablet 200 Mg PO BID Allergies Allergies: Coded Allergies: aspartame (Verified Allergy, Severe, TONGUE SWELLING, 03/26/17) saccharin (Verified Allergy, Severe, TONGUE SWELLING, 03/26/17) sucralose (Verified Allergy, Severe, TONGUE SWELLING, 03/26/17) quetiapine (Verified Adverse Reaction, Intermediate, restless legs, 03/26/17) zolpidem (Verified Adverse Reaction, Intermediate, restless legs, 03/26/17) FH: Family History: No pertinent hx Social History: Smoke: No ALCOHOL: none Drugs: None ROS: ROS General: YES: Fatigue, Malaise; No: Chills, Night Sweats, Appetite, Other PSYCHOLOGICAL ROS: YES: Anxiety, Behavioral Disorder, Concentration difficultie , Depression, Irritablity, Memory difficulties, Mood Swings, Obsessive thoughts; No: Decreased libido, Disorientation, Hallucinations, Hostility, Physical abuse, Sexual abuse, Sleep disturbances, Suicidal ideation, Other Eyes: No Blurry vision, No Decreased vision, No Double vision, No Dry eyes, No Excessive tearing, No Eye Pain, No Itchy Eyes, No Loss of vision, No Photophobia, No Scotomata, No Uses contacts, No Uses glasses, No Other HEENT: No: Heacaches, Visual Changes, Hearing change, Nasal congestion, Nasal discharge, Oral lesions, Sinus pain, Sore Throat, Epistaxis, Sneezing, Snoring, Tinnitus, Vertigo, Vocal changes, Other ALLERGY AND IMMUNOLOGY: No: Hives, Insect Bite Sensitivity, Itchy/Watery Eyes, Nasal Congestion, Post Nasal Drip, Seasonal Allergies, Other Hematological and Lymphatic: No: Bleeding Problems, Blood Clots, Blood Transfusions, Brusing, Night Sweats, Pallor, Swollen Lymph Nodes, Other ENDOCRINE: No: Breast Changes, Galactorrhea, Hair Pattern Changes, Hot Flashes, Malaise/lethargy, Mood Swings, Palpitations, Polydipsia/polyuria, Skin Changes, Temperature Intolerance, Unexpected Weight Changes, Other Breast: No New/Changing Breast Lumps, No Nipple changes, No Nipple discharge, No Other Respiratory: YES: Shortness of breath, SOB with excertion; No: Cough, Hemoptysis, Orthopnea, Pleuritic Pain, Sputum Changes, Stridor, Tachypnea, Wheezing, Other Cardiovascular: yes Palpitations; No Chest Pain, No Orthopnea, No Paroxysmal Noc. Dyspnea, No Edema, No Lt Headedness, No Other Gastrointestinal: Yes Nausea, Yes Abdominal Pain; No Vomiting, No Diarrhea, No Constipation, No Melena, No Hematochezia, No Other Genitourinary: No Dysuria, No Frequency, No Incontinence, No Hematuria, No Retention, No Discharge, No Urgency, No Pain, No Flank Pain, No Other, No , No , No , No , No , No , No Musculoskeletal: No Gait Disturbance, No Joint Pain, No Joint Stiffness, No Joint Swelling, No Muscle Pain, No Muscular Weakness, No Pain In:, No Swelling In:, No Other Neurological: No Behavorial Changes, No Bowel/Bladder ControlChng, No Confusion, No Dizziness, No Gait Disturbance, No Headaches, No Impaired Coord/balance, No Memory Loss, No Numbness/Tingling, No Seizures, No Speech Problems, No Tremors, No Visual Changes, No Weakness, No Other Skin: No Dry Skin, No Eczema, No Hair Changes, No Lumps, No Mole Changes, No Mottling, No Nail Changes, No Pruritus, No Rash, No Skin Lesion Changes, No Other, No Acne VItals: Vitals: Vital Signs Date Time Temp Pulse Resp B/P (MAP) Pulse Ox O2 Delivery O2 Flow Rate FiO2 07/30/21 10:56 97.9 67 18 122/61 (81) 97 Room Air 97.9 Labs: Labs: Laboratory Tests Test 07/29/21 15:50 07/29/21 15:53 07/29/21 18:02 07/29/21 19:05 White Blood Count 8.6 x10^3/uL (4.0-11.0) Red Blood Count 4.89 x10^6/uL (3.50-5.40) Hemoglobin 13.2 g/dL (12.0-15.5) Hematocrit 40.7 % (36.0-47.0) Mean Corpuscular Volume 83 fL (79-100) Mean Corpuscular Hemoglobin 27 pg (25-35) Mean Corpuscular Hemoglobin Concent 32 g/dL (31-37) Red Cell Distribution Width 16.2 % (11.5-14.5) Platelet Count 334 x10^3/uL (140-400) Neutrophils (%) (Auto) 69 % (31-73) Lymphocytes (%) (Auto) 24 % (24-48) Monocytes (%) (Auto) 6 % (0-9) Eosinophils (%) (Auto) 1 % (0-3) Basophils (%) (Auto) 1 % (0-3) Neutrophils # (Auto) 5.9 x10^3/uL (1.8-7.7) Lymphocytes # (Auto) 2.1 x10^3/uL (1.0-4.8) Monocytes # (Auto) 0.5 x10^3/uL (0.0-1.1) Eosinophils # (Auto) 0.1 x10^3/uL (0.0-0.7) Basophils # (Auto) 0.1 x10^3/uL (0.0-0.2) Sodium Level 141 mmol/L (136-145) Potassium Level 3.5 mmol/L (3.5-5.1) Chloride Level 104 mmol/L (98-107) Carbon Dioxide Level 19 mmol/L (21-32) Anion Gap 18 (6-14) Blood Urea Nitrogen 12 mg/dL (7-20) Creatinine 1.0 mg/dL (0.6-1.0) Estimated GFR (Cockcroft-Gault) 58.9 Glucose Level 134 mg/dL (70-99) Calcium Level 9.4 mg/dL (8.5-10.1) Total Bilirubin 0.8 mg/dL (0.2-1.0) Direct Bilirubin 0.2 mg/dL (0.0-0.2) Aspartate Amino Transf (AST/SGOT) 11 U/L (15-37) Alanine Aminotransferase (ALT/SGPT) 21 U/L (14-59) Alkaline Phosphatase 61 U/L (46-116) Troponin I High Sensitivity 10 ng/L (4-50) 11 ng/L (4-50) Total Protein 8.2 g/dL (6.4-8.2) Albumin 4.4 g/dL (3.4-5.0) Serum Test, Qualitative Negative (NEG) Urine Collection Type Unknown Urine Color Yellow Urine Clarity Clear Urine pH 6.0 (<5.0-8.0) Urine Specific [place] 1.020 (1.000-1.030) Urine Protein 30 mg/dL (NEG-TRACE) Urine Glucose (UA) Negative mg/dL (NEG) Urine Ketones (Stick) 40 mg/dL (NEG) Urine Blood Negative (NEG) Urine Nitrite Negative (NEG) Urine Bilirubin Negative (NEG) Urine Urobilinogen Dipstick 0.2 mg/dL (0.2 mg/dL) Urine Leukocyte Esterase Negative (NEG) Urine RBC 0 /HPF (0-2) Urine WBC 0 /HPF (0-4) Urine Squamous Epithelial Cells Few /LPF Urine Bacteria 0 /HPF (0-FEW) Urine Mucus Mod /LPF Urine Opiates Screen Pos (NEG) Urine Methadone Screen Neg (NEG) Urine Barbiturates Neg (NEG) Urine Phencyclidine Screen Neg (NEG) Urine Amphetamine/Methamphetamine Neg (NEG) Urine Benzodiazepines Screen Neg (NEG) Urine Cocaine Screen Neg (NEG) Urine Cannabinoids Screen Pos (NEG) Urine Ethyl Alcohol Neg (NEG) Bedside Urine HCG, Qualitative Hcg negative (Negative) Test 07/30/21 01:25 07/30/21 13:20 White Blood Count 7.9 x10^3/uL (4.0-11.0) Red Blood Count 4.48 x10^6/uL (3.50-5.40) Hemoglobin 12.1 g/dL (12.0-15.5) Hematocrit 36.9 % (36.0-47.0) Mean Corpuscular Volume 83 fL (79-100) Mean Corpuscular Hemoglobin 27 pg (25-35) Mean Corpuscular Hemoglobin Concent 33 g/dL (31-37) Red Cell Distribution Width 15.9 % (11.5-14.5) Platelet Count 288 x10^3/uL (140-400) Neutrophils (%) (Auto) 64 % (31-73) Lymphocytes (%) (Auto) 28 % (24-48) Monocytes (%) (Auto) 7 % (0-9) Eosinophils (%) (Auto) 1 % (0-3) Basophils (%) (Auto) 1 % (0-3) Neutrophils # (Auto) 5.1 x10^3/uL (1.8-7.7) Lymphocytes # (Auto) 2.2 x10^3/uL (1.0-4.8) Monocytes # (Auto) 0.5 x10^3/uL (0.0-1.1) Eosinophils # (Auto) 0.1 x10^3/uL (0.0-0.7) Basophils # (Auto) 0.0 x10^3/uL (0.0-0.2) Sodium Level 144 mmol/L (136-145) Potassium Level 3.5 mmol/L (3.5-5.1) Chloride Level 109 mmol/L (98-107) Carbon Dioxide Level 27 mmol/L (21-32) Anion Gap 8 (6-14) Blood Urea Nitrogen 11 mg/dL (7-20) Creatinine 0.9 mg/dL (0.6-1.0) Estimated GFR (Cockcroft-Gault) 66.5 Glucose Level 122 mg/dL (70-99) Calcium Level 8.5 mg/dL (8.5-10.1) Troponin I High Sensitivity 13 ng/L (4-50) SARS-CoV-2 Antigen (Rapid) Negative (NEGATIVE) Imaging: Imaging: CTA chest abdomen pelvis with contrast dated 07/29/2021. COMPARISON: None. INDICATION: Jaw pain and shortness of breath. TECHNIQUE: Continues axial imaging the chest abdomen pelvis performed after the administration of 100 cc Omnipaque 350. Study was performed as dedicated CTA with thin cut coronal and sagittal MIPS reconstruction and 3-D rotational reconstruction. One or more of the following individualized dose reduction techniques were utilized for this examination: 1. Automated exposure control 2. Adjustment of the mA and/or kV according to patient size 3. Use of iterative reconstruction technique FINDINGS: Contrast bolus is adequate. Ascending aorta is normal in caliber. No intimal flap or periaortic fluid collection. Heart size within normal limits. No pericardial effusion. No mediastinal, hilar or axillary lymphadenopathy. The great vessels off the aortic arch are patent. Abdominal aorta is normal in caliber. There are mild atherosclerotic calcifications of the abdominal aorta. No evidence of aneurysm or periaortic fluid collection. No intimal flap. There is moderate narrowing of the celiac artery origin due to soft plaque. The SMA is patent. Bilateral renal arteries are grossly patent. MYLES is patent. The bilateral iliac vessels are patent. Central airways are patent. Lungs are clear. There is a noncalcified pulmonary nodule in the right lower lobe on image 79 measures 4 mm. No consolidation or pleural effusion. No pneumothorax. Liver and spleen are homogeneous. No focal hepatic mass. There is some low density near the falciform ligament consistent with focal fat. The gallbladder is unremarkable. Pancreas, adrenal glands and kidneys are unremarkable. No hydronephrosis. Unopacified GI tract normal in caliber and contour. No bowel wall thickening. The appendix is normal in caliber. No ascites or lymphadenopathy. Images of pelvis show nondistended urinary bladder. Uterus and adnexa are unremarkable. No free fluid or lymphadenopathy. Bone windows show no acute finding IMPRESSION: 1. No acute abnormality of chest abdomen or pelvis. No evidence of aortic dissection. 2. Mild atherosclerotic changes. 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 3. There is a small noncalcified pulmonary nodule in the right lower lobe, nonspecific. Follow-up imaging may be warranted based on risk factors. Electronically signed by: Stefano Pineda MD (07/29/2021 5:46 PM) [facility] [place]: General: Alert, Oriented X3, Cooperative, moderate distress HEENT: Atraumatic, PERRLA, EOMI, Mucous membr. moist/pink Lungs: Clear to auscultation, Normal air movement Heart: S1S2, RRR, no thrills, no rubs, no gallops, no murmurs Abdomen: Normal bowel sounds, Soft, No tenderness, No hepatosplenomegaly, No masses Rectal Exam: not examined Extremities: No clubbing, No cyanosis, No edema, Normal pulses, No tenderness/swelling Skin: No rashes, No breakdown, No significant lesion Neuro: Normal gait, Normal speech, Strength at 5/5 X4 ext, Normal tone, Sensation intact, Cranial nerves 3-12 NL, Reflexes 2+ Psych/Mental Status: Mental status NL, Mood NL, Other (circumferential, tangential, pressured speech)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 A/P: A/P: A &P 1) Atypical chest pain- ppi 2) Abdominal pain- trial of dicyclomine , check lipase. She has a pending outpatient eval with Dr Burns 3) Celiac artery with moderate narrowing- favor vascular surgery input for ? celiac artery compression as source of pain JORGE STAPLES MD Jul 30, 2021 14:33
[2021-07-30 14:44] VITALS: BP 112/62
--- NOTE | 2021-07-30 15:36 | RAD ---
XR LUMBAR SPINE 2-3V DATE: 07/30/2021 12:32 PM INDICATION: back pain COMPARISON: None. FINDINGS: Five non-rib bearing lumbar-type vertebral bodies are present. Bones/Alignment: No evidence of acute compression fracture. There is no listhesis. Joints: Mild degenerative disc space narrowing at L4-5 and L5-S1 Miscellaneous: None. IMPRESSION: 1. No evidence of acute compression fracture. 2. Mild lumbar spondylosis. Electronically signed by: Leonel Osorio MD (07/30/2021 3:34 PM) [facility]
--- NOTE | 2021-07-30 18:58 | EKG ---
[facility] [address] [place] [id number] Test Date: 2021-07-29 Test Time: 15:29:30 Pat Name: NANETTE MANCILLA Department: Room: 210 1 Gender: F Thread Marker: : 1970 Requested By: ESME MTZ Order Number: [id number] Reading MD: Brian Lam MD Measurements Intervals [place] Rate: 88 P: 26 [place]: 144 QRS: 59 QRSD: 90 T: -54 QT: 362 QTc: 441 Interpretive Statements SINUS RHYTHM INFEROLATERAL ISCHEMIA Electronically Signed On 08-01-2021 11:03:54 APPLICATION SUPPORT ENGINEER by Brian Lam MD
[2021-07-30 19:00] VITALS: BP 140/48
[2021-07-30 23:00] VITALS: BP 98/61
[2021-07-31 03:00] VITALS: BP 118/67
[2021-07-31] MEDS: traMADol 50 MG TABLET PO PRN (03:40)
[2021-07-31] MEDS: PANTOPRAZOLE 40 MG TABLET.DR. PO SCH ×3 (06:21→16:23)
[2021-07-31] MEDS: LEVOTHYROXINE 125 MCG TABLET PO SCH ×2 (06:21→06:33)
[2021-07-31] MEDS: ONDANSETRON PF 4 MG/2 ML VIAL. IVP PRN (06:24)
[2021-07-31 07:00] VITALS: BP 117/75
--- NOTE | 2021-07-31 08:25 | PDOC ---
PROGRESS NOTES Date of Service: DATE: 07/31/21 TIME: 08:24 Subjective Subjective Feeling better today with improvement in shortness of breath and abdominal pain Objective Objective Vital Signs Date Time Temp Pulse Resp B/P (MAP) Pulse Ox O2 Delivery O2 Flow Rate FiO2 07/31/21 03:00 98.2 75 118/67 (84) 98 Room Air 98.2 07/30/21 23:00 16 Intake and Output 07/31/21 07:00 Intake Total 760 ml Balance 760 ml Intake Oral 760 ml # Voids 3 Physical Exam Abdomen: Soft Heart: Regular rate Extremities: No edema General: Alert, Oriented X3 HEENT: Atraumatic Lungs: Clear to auscultation Neuro: Normal speech Psych/Mental Status: Mood NL Skin: No rashes, No breakdown, No significant lesion Assessment Assessment 1. Shortness of breath, most probably secondary to anxiety but she does not have any clinical evidence of fluid overload. Myocardial infarction ruled out based on cardiac enzymes. Doubt ACS. We will plan for 2D echo and ischemic evaluation as an outpatient. 2. Abdominal pain: Follow-up with gastroenterology team as previously scheduled 3. Hyperlipidemia: Continue statins 4. Hypothyroidism: Continue levothyroxine 5. Anxiety and bipolar disorder: Continue current treatment Plan Plan of Care Problems Medical Problems: (1) Anginal equivalent Status: Acute Comment Review of Relevant I have reviewed the following items phuong (where applicable) has been applied. Labs Laboratory Tests Test 07/30/21 13:20 SARS-CoV-2 Antigen (Rapid) Negative (NEGATIVE) Medications Current Medications Dicyclomine HCl (Bentyl) 10 mg PRN QID PRN PO ABDOMINAL CRAMPS; Start 07/30/21 at 14:30 Lamotrigine (LaMICtal) 200 mg BID PO Last administered on 07/30/21at 21:14; Start 07/30/21 at 10:00 Levothyroxine Sodium (Synthroid) 125 mcg DAILYAC PO Last administered on 07/31/21at 06:33; Start 07/31/21 at 07:30 Lorazepam (Ativan) 1 mg TID PRN PRN PO ANXIETY / AGITATION Last administered on 07/30/21at 16:55; Start 07/30/21 at 09:45 Multi-Ingredient Mouthwash/Gargle (Gi Cocktail) 20 ml PRN QID PRN PO CHEST PAIN; Start 07/30/21 at 11:00 Pantoprazole Sodium (Protonix) 40 mg BIDAC PO Last administered on 07/31/21at 06:33; Start 07/30/21 at 12:30 Simethicone (Gas-X) 80 mg PRN AFTMEALHC PRN PO GAS / BLOATING; Start 07/30/21 at 12:30 Vitals/I & O Vital Sign - Last 24 Hours 07/30/21 07/30/21 07/30/21 07/30/21 10:56 14:44 19:00 23:00 Temp 97.9 98.0 98.2 98.3 97.9 98.0 98.2 98.3 Pulse 67 63 80 73 Resp 18 18 20 16 B/P (MAP) 122/61 (81) 112/62 (79) 140/48 (78) 98/61 (73) Pulse Ox 97 97 93 97 O2 Delivery Room Air Room Air Room Air Room Air 07/31/21 03:00 Temp 98.2 98.2 Pulse 75 B/P (MAP) 118/67 (84) Pulse Ox 98 O2 Delivery Room Air Intake and Output 07/30/21 07/30/21 07/31/21 15:00 23:00 07:00 Intake Total 120 ml 340 ml 300 ml Balance 120 ml 340 ml 300 ml ALICIA PETERSON MD Jul 31, 2021 08:25
[2021-07-31] MEDS: lamoTRIgine 100 MG TABLET. PO SCH (09:13)
[2021-07-31 09:18] LABS: BASO % 1 % (0-3); EOS # 0.1 x10^3/uL (0.0-0.7); EOS % 1 % (0-3); HEMATOCRIT 38.2 % (36.0-47.0); HEMOGLOBIN 12.5 g/dL (12.0-15.5); LYMPH % 25 % (24-48); MEAN CORPUSCULAR HEMOGLOBIN 27 pg (25-35); MEAN CORPUSCULAR HGB CONC 33 g/dL (31-37); MEAN CORPUSCULAR VOLUME 83 fL (79-100); MONO # 0.5 x10^3/uL (0.0-1.1); MONO % 6 % (0-9); NEUT # 5.3 x10^3/uL (1.8-7.7); NEUT % 67 % (31-73); PLATELET COUNT 260 x10^3/uL (140-400); RED BLOOD COUNT 4.62 x10^6/uL (3.50-5.40); RED CELL DISTRIBUTION WIDTH 16.5 % (11.5-14.5); WHITE BLOOD COUNT 7.9 x10^3/uL (4.0-11.0)
[2021-07-31 09:39] LABS: ALBUMIN 3.6 g/dL (3.4-5.0); ALBUMIN/GLOBULIN RATIO 1.1 (1.0-1.7); CALCIUM 8.1 mg/dL (8.5-10.1); CREATININE 0.9 mg/dL (0.6-1.0); GFR 66.5; POTASSIUM 3.5 mmol/L (3.5-5.1); TOTAL BILIRUBIN 0.6 mg/dL (0.2-1.0)
[2021-07-31 11:00] VITALS: BP 119/72
--- NOTE | 2021-07-31 12:17 | PDOC2 ---
CONSULT Date of Consult Date of Consult DATE: 07/31/21 TIME: 12:07 Reason for Consult Reason for Consult: Chest and abdominal discomfort Referring Physician Referring Physician: Souleymane Long MD Identification/Chief Complaint Chief Complaint Abdominal pain History of Present Illness Reason for Visit: She is a 50-year-old female with history of anxiety who was admitted with worsening midepigastric abdominal and substernal chest discomfort. She reports that she has had intermittent chest discomfort as well as left arm pain and left neck pain that has worsened over the last few weeks. She also reports shortness of breath with activity. She has been having intermittent abdominal discomfort. This abdominal discomfort is in the midepigastric region but radiates from the right to the left. She also reports nausea, but denies any emesis in the last month. She notes frequent soft stools, but denies any constipation. She denies any hematochezia or melena. She denies any fevers, but notes chills frequently. A CT of the chest, abdomen, and pelvis demonstrated mild narrowing of the origin of the celiac artery consistent with compression from the diaphragm. This results in less than 50% diameter narrowing. The superior mesenteric and inferior mesenteric arteries are patent without significant narrowing. There is mild calcification of the infrarenal aorta, but no significant narrowing. I was asked to see her with regards to the narrowing of the celiac artery. Past Medical History Cardiovascular: Hyperlipidemia Psych: Anxiety, Bipolar Endocrine: Hypothyroidism Past Surgical History Past Surgical History: Tubal Ligation Family History Family History: High Cholestrol, Hypothyroidism Social History No ALCOHOL: none Drugs: None Current Problem List Problem List Problems Medical Problems: (1) Anginal equivalent Status: Acute Current Medications Current Medications Current Medications Aspirin (Ana Aspirin) 325 mg 1X ONCE PO Last administered on 07/29/21at 16:45; Start 07/29/21 at 16:45; Stop 07/29/21 at 16:46; Status DC Sodium Chloride 1,000 ml @ 1,000 mls/hr 1X ONCE IV Last administered on 07/29/21at 17:56; Start 07/29/21 at 16:15; Stop 07/29/21 at 17:14; Status DC Iohexol (Omnipaque 350 Mg/ml) 100 ml 1X ONCE IV Last administered on 07/29/21at 17:21; Start 07/29/21 at 17:00; Stop 07/29/21 at 17:01; Status DC Info (CONTRAST GIVEN -- Rx MONITORING) 1 each PRN DAILY PRN MC SEE COMMENTS; Start 07/29/21 at 17:15; Stop 07/31/21 at 17:14 Ondansetron HCl (Zofran) 4 mg PRN Q8HRS PRN IVP NAUSEA/VOMITING; Start 07/29/21 at 18:30; Stop 07/29/21 at 18:58; Status DC Acetaminophen (Tylenol) 650 mg PRN Q4HRS PRN PO FEVER > 100.3'F; Start 07/29/21 at 18:30; Stop 07/29/21 at 18:58; Status DC Ondansetron HCl (Zofran) 4 mg PRN Q4HRS PRN IVP NAUSEA/VOMITING Last administered on 07/31/21at 06:24; Start 07/29/21 at 19:00 Acetaminophen (Tylenol) 650 mg PRN Q6HRS PRN PO FEVER > 100.3'F Last administered on 07/31/21at 09:17; Start 07/29/21 at 19:00 Multi-Ingredient Mouthwash/Gargle (Gi Cocktail) 20 ml 1X ONCE SWSW Last administered on 07/29/21at 19:31; Start 07/29/21 at 19:15; Stop 07/29/21 at 19:16; Status DC Fentanyl Citrate (Fentanyl 2ml Vial) 25 mcg PRN Q3HRS PRN IVP SEVERE PAIN 7-10 Last administered on 07/30/21at 04:35; Start 07/30/21 at 04:00 Tramadol HCl (Ultram) 50 mg PRN Q6HRS PRN PO PAIN Last administered on 07/31/21at 03:40; Start 07/30/21 at 04:00 Nitroglycerin (Nitrostat) 0.4 mg PRN Q5MIN PRN SL CHEST PAIN; Start 07/30/21 at 07:00 Levothyroxine Sodium (Synthroid) 125 mcg DAILYAC PO Last administered on 2at 06:33; Start 07/31/21 at 07:30 Lorazepam (Ativan) 1 mg TID PRN PRN PO ANXIETY / AGITATION Last administered on 07/30/21at 16:55; Start 07/30/21 at 09:45 Lamotrigine (LaMICtal) 200 mg BID PO Last administered on 07/31/21at 09:13; Start 07/30/21 at 10:00 Multi-Ingredient Mouthwash/Gargle (Gi Cocktail) 20 ml PRN QID PRN PO CHEST PAIN; Start 07/30/21 at 11:00 Pantoprazole Sodium (Protonix) 40 mg BIDAC PO Last administered on 07/31/21at 06:33; Start 07/30/21 at 12:30 Simethicone (Gas-X) 80 mg PRN AFTMEALHC PRN PO GAS / BLOATING; Start 07/30/21 at 12:30 Dicyclomine HCl (Bentyl) 10 mg PRN QID PRN PO ABDOMINAL CRAMPS; Start 07/30/21 at 14:30 Active Scripts Active Reported Halcion (Triazolam) 0.25 Mg Tablet 0.25 Mg PO HS Adderall 10 Mg Tablet (Dextroamphetamine/Amphetamine) 10 Mg Tablet 10 Mg PO BIDAFTMEAL PRN PRN Levothyroxine Sodium 125 Mcg Tablet 125 Mcg PO DAILYAC Lorazepam 1 Mg Tablet 1 Mg PO TID PRN PRN Lamotrigine 200 Mg Tablet 200 Mg PO BID Allergies Allergies: Coded Allergies: aspartame (Verified Allergy, Severe, TONGUE SWELLING, 03/26/17) saccharin (Verified Allergy, Severe, TONGUE SWELLING, 03/26/17) sucralose (Verified Allergy, Severe, TONGUE SWELLING, 03/26/17) quetiapine (Verified Adverse Reaction, Intermediate, restless legs, 03/26/17) zolpidem (Verified Adverse Reaction, Intermediate, restless legs, 03/26/17) ROS General: YES: Chills, Fatigue, Malaise PSYCHOLOGICAL ROS: YES: Anxiety Respiratory: YES: Shortness of breath, SOB with excertion Cardiovascular: yes Chest Pain Gastrointestinal: Yes Nausea, Yes Diarrhea Physical Exam General: Alert, Oriented X3, No acute distress HEENT: Other (Neck supple, no lymphadenopathy) Lungs: Normal air movement Heart: Regular rate Abdomen: Soft, No tenderness, No masses Extremities: No edema, Other (Palpable radial, femoral, popliteal, and pedal pulses bilaterally.) Neuro: Other (Normal upper and lower extremity strength without focal deficits) Vitals VITALS Vital Signs Date Time Temp Pulse Resp B/P (MAP) Pulse Ox O2 Delivery O2 Flow Rate FiO2 07/31/21 08:00 Room Air 07/31/21 07:00 98.3 75 19 117/75 (89) 98 98.3 Labs Labs Laboratory Tests Test 07/29/21 15:50 07/29/21 15:53 07/29/21 18:02 07/29/21 19:05 White Blood Count 8.6 x10^3/uL (4.0-11.0) Red Blood Count 4.89 x10^6/uL (3.50-5.40) Hemoglobin 13.2 g/dL (12.0-15.5) Hematocrit 40.7 % (36.0-47.0) Mean Corpuscular Volume 83 fL (79-100) Mean Corpuscular Hemoglobin 27 pg (25-35) Mean Corpuscular Hemoglobin Concent 32 g/dL (31-37) Red Cell Distribution Width 16.2 % (11.5-14.5) Platelet Count 334 x10^3/uL (140-400) Neutrophils (%) (Auto) 69 % (31-73) Lymphocytes (%) (Auto) 24 % (24-48) Monocytes (%) (Auto) 6 % (0-9) Eosinophils (%) (Auto) 1 % (0-3) Basophils (%) (Auto) 1 % (0-3) Neutrophils # (Auto) 5.9 x10^3/uL (1.8-7.7) Lymphocytes # (Auto) 2.1 x10^3/uL (1.0-4.8) Monocytes # (Auto) 0.5 x10^3/uL (0.0-1.1) Eosinophils # (Auto) 0.1 x10^3/uL (0.0-0.7) Basophils # (Auto) 0.1 x10^3/uL (0.0-0.2) Sodium Level 141 mmol/L (136-145) Potassium Level 3.5 mmol/L (3.5-5.1) Chloride Level 104 mmol/L (98-107) Carbon Dioxide Level 19 mmol/L (21-32) Anion Gap 18 (6-14) Blood Urea Nitrogen 12 mg/dL (7-20) Creatinine 1.0 mg/dL (0.6-1.0) Estimated GFR (Cockcroft-Gault) 58.9 Glucose Level 134 mg/dL (70-99) Calcium Level 9.4 mg/dL (8.5-10.1) Total Bilirubin 0.8 mg/dL (0.2-1.0) Direct Bilirubin 0.2 mg/dL (0.0-0.2) Aspartate Amino Transf (AST/SGOT) 11 U/L (15-37) Alanine Aminotransferase (ALT/SGPT) 21 U/L (14-59) Alkaline Phosphatase 61 U/L (46-116) Troponin I High Sensitivity 10 ng/L (4-50) 11 ng/L (4-50) Total Protein 8.2 g/dL (6.4-8.2) Albumin 4.4 g/dL (3.4-5.0) Serum Test, Qualitative Negative (NEG) Urine Collection Type Unknown Urine Color Yellow Urine Clarity Clear Urine pH 6.0 (<5.0-8.0) Urine Specific [place] 1.020 (1.000-1.030) Urine Protein 30 mg/dL (NEG-TRACE) Urine Glucose (UA) Negative mg/dL (NEG) Urine Ketones (Stick) 40 mg/dL (NEG) Urine Blood Negative (NEG) Urine Nitrite Negative (NEG) Urine Bilirubin Negative (NEG) Urine Urobilinogen Dipstick 0.2 mg/dL (0.2 mg/dL) Urine Leukocyte Esterase Negative (NEG) Urine RBC 0 /HPF (0-2) Urine WBC 0 /HPF (0-4) Urine Squamous Epithelial Cells Few /LPF Urine Bacteria 0 /HPF (0-FEW) Urine Mucus Mod /LPF Urine Opiates Screen Pos (NEG) Urine Methadone Screen Neg (NEG) Urine Barbiturates Neg (NEG) Urine Phencyclidine Screen Neg (NEG) Urine Amphetamine/Methamphetamine Neg (NEG) Urine Benzodiazepines Screen Neg (NEG) Urine Cocaine Screen Neg (NEG) Urine Cannabinoids Screen Pos (NEG) Urine Ethyl Alcohol Neg (NEG) Bedside Urine HCG, Qualitative Hcg negative (Negative) Test 07/30/21 01:25 07/30/21 13:20 07/31/21 09:00 White Blood Count 7.9 x10^3/uL (4.0-11.0) 7.9 x10^3/uL (4.0-11.0) Red Blood Count 4.48 x10^6/uL (3.50-5.40) 4.62 x10^6/uL (3.50-5.40) Hemoglobin 12.1 g/dL (12.0-15.5) 12.5 g/dL (12.0-15.5) Hematocrit 36.9 % (36.0-47.0) 38.2 % (36.0-47.0) Mean Corpuscular Volume 83 fL (79-100) 83 fL (79-100) Mean Corpuscular Hemoglobin 27 pg (25-35) 27 pg (25-35) Mean Corpuscular Hemoglobin Concent 33 g/dL (31-37) 33 g/dL (31-37) Red Cell Distribution Width 15.9 % (11.5-14.5) 16.5 % (11.5-14.5) Platelet Count 288 x10^3/uL (140-400) 260 x10^3/uL (140-400) Neutrophils (%) (Auto) 64 % (31-73) 67 % (31-73) Lymphocytes (%) (Auto) 28 % (24-48) 25 % (24-48) Monocytes (%) (Auto) 7 % (0-9) 6 % (0-9) Eosinophils (%) (Auto) 1 % (0-3) 1 % (0-3) Basophils (%) (Auto) 1 % (0-3) 1 % (0-3) Neutrophils # (Auto) 5.1 x10^3/uL (1.8-7.7) 5.3 x10^3/uL (1.8-7.7) Lymphocytes # (Auto) 2.2 x10^3/uL (1.0-4.8) 2.0 x10^3/uL (1.0-4.8) Monocytes # (Auto) 0.5 x10^3/uL (0.0-1.1) 0.5 x10^3/uL (0.0-1.1) Eosinophils # (Auto) 0.1 x10^3/uL (0.0-0.7) 0.1 x10^3/uL (0.0-0.7) Basophils # (Auto) 0.0 x10^3/uL (0.0-0.2) 0.0 x10^3/uL (0.0-0.2) Sodium Level 144 mmol/L (136-145) 140 mmol/L (136-145) Potassium Level 3.5 mmol/L (3.5-5.1) 3.5 mmol/L (3.5-5.1) Chloride Level 109 mmol/L (98-107) 104 mmol/L (98-107) Carbon Dioxide Level 27 mmol/L (21-32) 27 mmol/L (21-32) Anion Gap 8 (6-14) 9 (6-14) Blood Urea Nitrogen 11 mg/dL (7-20) 9 mg/dL (7-20) Creatinine 0.9 mg/dL (0.6-1.0) 0.9 mg/dL (0.6-1.0) Estimated GFR (Cockcroft-Gault) 66.5 66.5 Glucose Level 122 mg/dL (70-99) 112 mg/dL (70-99) Calcium Level 8.5 mg/dL (8.5-10.1) 8.1 mg/dL (8.5-10.1) Troponin I High Sensitivity 13 ng/L (4-50) SARS-CoV-2 Antigen (Rapid) Negative (NEGATIVE) BUN/Creatinine Ratio 10 (6-20) Total Bilirubin 0.6 mg/dL (0.2-1.0) Aspartate Amino Transf (AST/SGOT) 15 U/L (15-37) Alanine Aminotransferase (ALT/SGPT) 18 U/L (14-59) Alkaline Phosphatase 50 U/L (46-116) Total Protein 7.0 g/dL (6.4-8.2) Albumin 3.6 g/dL (3.4-5.0) Albumin/Globulin Ratio 1.1 (1.0-1.7) Amylase Level 38 U/L (25-115) Lipase 50 U/L (73-393) Thyroid Stimulating Hormone (TSH) 2.945 uIU/mL (0.358-3.74) Laboratory Tests Test 07/30/21 13:20 07/31/21 09:00 SARS-CoV-2 Antigen (Rapid) Negative (NEGATIVE) White Blood Count 7.9 x10^3/uL (4.0-11.0) Red Blood Count 4.62 x10^6/uL (3.50-5.40) Hemoglobin 12.5 g/dL (12.0-15.5) Hematocrit 38.2 % (36.0-47.0) Mean Corpuscular Volume 83 fL (79-100) Mean Corpuscular Hemoglobin 27 pg (25-35) Mean Corpuscular Hemoglobin Concent 33 g/dL (31-37) Red Cell Distribution Width 16.5 % (11.5-14.5) Platelet Count 260 x10^3/uL (140-400) Neutrophils (%) (Auto) 67 % (31-73) Lymphocytes (%) (Auto) 25 % (24-48) Monocytes (%) (Auto) 6 % (0-9) Eosinophils (%) (Auto) 1 % (0-3) Basophils (%) (Auto) 1 % (0-3) Neutrophils # (Auto) 5.3 x10^3/uL (1.8-7.7) Lymphocytes # (Auto) 2.0 x10^3/uL (1.0-4.8) Monocytes # (Auto) 0.5 x10^3/uL (0.0-1.1) Eosinophils # (Auto) 0.1 x10^3/uL (0.0-0.7) Basophils # (Auto) 0.0 x10^3/uL (0.0-0.2) Sodium Level 140 mmol/L (136-145) Potassium Level 3.5 mmol/L (3.5-5.1) Chloride Level 104 mmol/L (98-107) Carbon Dioxide Level 27 mmol/L (21-32) Anion Gap 9 (6-14) Blood Urea Nitrogen 9 mg/dL (7-20) Creatinine 0.9 mg/dL (0.6-1.0) Estimated GFR (Cockcroft-Gault) 66.5 BUN/Creatinine Ratio 10 (6-20) Glucose Level 112 mg/dL (70-99) Calcium Level 8.1 mg/dL (8.5-10.1) Total Bilirubin 0.6 mg/dL (0.2-1.0) Aspartate Amino Transf (AST/SGOT) 15 U/L (15-37) Alanine Aminotransferase (ALT/SGPT) 18 U/L (14-59) Alkaline Phosphatase 50 U/L (46-116) Total Protein 7.0 g/dL (6.4-8.2) Albumin 3.6 g/dL (3.4-5.0) Albumin/Globulin Ratio 1.1 (1.0-1.7) Amylase Level 38 U/L (25-115) Lipase 50 U/L (73-393) Thyroid Stimulating Hormone (TSH) 2.945 uIU/mL (0.358-3.74) Images Images I reviewed the CT angiogram with pertinent findings as detailed above. Assessment/Plan Assessment/Plan 1. Chest pain of uncertain etiology 2. Abdominal pain of uncertain etiology 3. Bipolar disorder 4. Mild compression of celiac artery. I do not feel that this is contributing to her abdominal discomfort The etiologies of her chest and abdominal discomfort remains unclear. 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 I would not recommend any intervention for this mild compression. I discussed this extensively with her. Risks outweigh potential benefits for intervention. Would be happy to reevaluate her in the future if other vascular concerns arise. OSKAR BALBUENA MD Jul 31, 2021 12:17
--- NOTE | 2021-07-31 12:51 | PDOC ---
Date of Service: DATE: 07/31/21 TIME: 12:49 Subjective: Subjective: Pain better with white oval pill. Objective: Vital Signs: Vital Signs Date Time Temp Pulse Resp B/P (MAP) Pulse Ox O2 Delivery O2 Flow Rate FiO2 07/31/21 08:00 Room Air 07/31/21 07:00 98.3 75 19 117/75 (89) 98 98.3 Labs: Laboratory Tests Test 07/30/21 13:20 07/31/21 09:00 SARS-CoV-2 Antigen (Rapid) Negative (NEGATIVE) White Blood Count 7.9 x10^3/uL (4.0-11.0) Red Blood Count 4.62 x10^6/uL (3.50-5.40) Hemoglobin 12.5 g/dL (12.0-15.5) Hematocrit 38.2 % (36.0-47.0) Mean Corpuscular Volume 83 fL (79-100) Mean Corpuscular Hemoglobin 27 pg (25-35) Mean Corpuscular Hemoglobin Concent 33 g/dL (31-37) Red Cell Distribution Width 16.5 % (11.5-14.5) Platelet Count 260 x10^3/uL (140-400) Neutrophils (%) (Auto) 67 % (31-73) Lymphocytes (%) (Auto) 25 % (24-48) Monocytes (%) (Auto) 6 % (0-9) Eosinophils (%) (Auto) 1 % (0-3) Basophils (%) (Auto) 1 % (0-3) Neutrophils # (Auto) 5.3 x10^3/uL (1.8-7.7) Lymphocytes # (Auto) 2.0 x10^3/uL (1.0-4.8) Monocytes # (Auto) 0.5 x10^3/uL (0.0-1.1) Eosinophils # (Auto) 0.1 x10^3/uL (0.0-0.7) Basophils # (Auto) 0.0 x10^3/uL (0.0-0.2) Sodium Level 140 mmol/L (136-145) Potassium Level 3.5 mmol/L (3.5-5.1) Chloride Level 104 mmol/L (98-107) Carbon Dioxide Level 27 mmol/L (21-32) Anion Gap 9 (6-14) Blood Urea Nitrogen 9 mg/dL (7-20) Creatinine 0.9 mg/dL (0.6-1.0) Estimated GFR (Cockcroft-Gault) 66.5 BUN/Creatinine Ratio 10 (6-20) Glucose Level 112 mg/dL (70-99) Calcium Level 8.1 mg/dL (8.5-10.1) Total Bilirubin 0.6 mg/dL (0.2-1.0) Aspartate Amino Transf (AST/SGOT) 15 U/L (15-37) Alanine Aminotransferase (ALT/SGPT) 18 U/L (14-59) Alkaline Phosphatase 50 U/L (46-116) Total Protein 7.0 g/dL (6.4-8.2) Albumin 3.6 g/dL (3.4-5.0) Albumin/Globulin Ratio 1.1 (1.0-1.7) Amylase Level 38 U/L (25-115) Lipase 50 U/L (73-393) Thyroid Stimulating Hormone (TSH) 2.945 uIU/mL (0.358-3.74) Physical Exam: Physical Exam: General: Alert, Oriented X3, Cooperative, moderate distress HEENT: Atraumatic, PERRLA, EOMI, Mucous membr. moist/pink Lungs: Clear to auscultation, Normal air movement Heart: S1S2, RRR, no thrills, no rubs, no gallops, no murmurs Abdomen: Normal bowel sounds, Soft, No tenderness, No hepatosplenomegaly, No masses Rectal Exam: not examined Extremities: No clubbing, No cyanosis, No edema, Normal pulses, No tenderness/swelling Skin: No rashes, No breakdown, No significant lesion Neuro: Normal gait, Normal speech, Strength at 5/5 X4 ext, Normal tone, Sensation intact, Cranial nerves 3-12 NL, Reflexes 2+ Psych/Mental Status: Mental status NL, Mood NL, Other (circumferential, tangential, pressured speech)Moderate narrowing of the celiac artery origin due to soft plaque. Assessment & Plan: Assessment : 1) Atypical chest pain- ppi 2) Abdominal pain- trial of dicyclomine , Lipase normal She has a pending outpatient eval with Dr Burns 3) Celiac artery with moderate narrowing- No intervention per [facility] surgery Plan: Can go home from GI standpoint and followup with Dr Burns for EGD Justicifation of Admission Dx: Justifications for Admission: Justification of Admission Dx: N/A JORGE STAPLES MD Jul 31, 2021 12:51
[2021-07-31] MEDS ORDERED: PANT40TA77 PO (14:01)
[2021-07-31] MEDS ORDERED: DICY10CA3 PO (14:01)
[2021-07-31] MEDS ORDERED: SIME80TA13 PO (14:01)
--- NOTE | 2021-07-31 14:02 | DISCH ---
DISCHARGE INSTRUCTIONS Condition on Discharge Condition on Discharge: Stable Activity After Discharge Activity Instructions for Disc: No restrictions Diet after Discharge Diet after Discharge: [place], GI Soft, Regular Contacting the DR. after DC Call your doctor for: If your condition worsens GRACE SIERRA MD Jul 31, 2021 14:02
--- NOTE | 2021-07-31 14:49 | PDOC ---
GENERAL General: Discharge summary [id number] VITAL SIGNS Vital Signs/I&O: Vital Signs Date Time Temp Pulse Resp B/P (MAP) Pulse Ox O2 Delivery O2 Flow Rate FiO2 07/31/21 11:00 98.3 83 17 119/72 (88) 98 Room Air 98.3 I & O 07/30/21 07/30/21 07/31/21 15:00 23:00 07:00 Intake Total 120 ml 340 ml 300 ml Balance 120 ml 340 ml 300 ml ALLERGIES Allergies: Allergies Coded Allergies Type Severity Reaction Last Updated Verified aspartame Allergy Severe TONGUE SWELLING 03/26/17 Yes saccharin Allergy Severe TONGUE SWELLING 03/26/17 Yes sucralose Allergy Severe TONGUE SWELLING 03/26/17 Yes quetiapine Adverse Reaction Intermediate restless legs 03/26/17 Yes zolpidem Adverse Reaction Intermediate restless legs 03/26/17 Yes MEDS Medications: Current Medications Medications (Trade) Dose Ordered Sig/Obed Route PRN Reason Start Time Stop Time Status Last Admin Dose Admin Levothyroxine Sodium (Synthroid) 125 mcg DAILYAC PO 07/31/21 07:30 07/31/21 06:33 LAB Lab: Laboratory Tests Test 07/31/21 09:00 White Blood Count 7.9 x10^3/uL (4.0-11.0) Red Blood Count 4.62 x10^6/uL (3.50-5.40) Hemoglobin 12.5 g/dL (12.0-15.5) Hematocrit 38.2 % (36.0-47.0) Mean Corpuscular Volume 83 fL (79-100) Mean Corpuscular Hemoglobin 27 pg (25-35) Mean Corpuscular Hemoglobin Concent 33 g/dL (31-37) Red Cell Distribution Width 16.5 % (11.5-14.5) H Platelet Count 260 x10^3/uL (140-400) Neutrophils (%) (Auto) 67 % (31-73) Lymphocytes (%) (Auto) 25 % (24-48) Monocytes (%) (Auto) 6 % (0-9) Eosinophils (%) (Auto) 1 % (0-3) Basophils (%) (Auto) 1 % (0-3) Neutrophils # (Auto) 5.3 x10^3/uL (1.8-7.7) Lymphocytes # (Auto) 2.0 x10^3/uL (1.0-4.8) Monocytes # (Auto) 0.5 x10^3/uL (0.0-1.1) Eosinophils # (Auto) 0.1 x10^3/uL (0.0-0.7) Basophils # (Auto) 0.0 x10^3/uL (0.0-0.2) Sodium Level 140 mmol/L (136-145) Potassium Level 3.5 mmol/L (3.5-5.1) Chloride Level 104 mmol/L (98-107) Carbon Dioxide Level 27 mmol/L (21-32) Anion Gap 9 (6-14) Blood Urea Nitrogen 9 mg/dL (7-20) Creatinine 0.9 mg/dL (0.6-1.0) Estimated GFR (Cockcroft-Gault) 66.5 BUN/Creatinine Ratio 10 (6-20) Glucose Level 112 mg/dL (70-99) H Calcium Level 8.1 mg/dL (8.5-10.1) L Total Bilirubin 0.6 mg/dL (0.2-1.0) Aspartate Amino Transferase (AST) 15 U/L (15-37) Alanine Aminotransferase (ALT) 18 U/L (14-59) Alkaline Phosphatase 50 U/L (46-116) Total Protein 7.0 g/dL (6.4-8.2) Albumin 3.6 g/dL (3.4-5.0) Albumin/Globulin Ratio 1.1 (1.0-1.7) Amylase Level 38 U/L (25-115) Lipase 50 U/L (73-393) L Thyroid Stimulating Hormone (TSH) 2.945 uIU/mL (0.358-3.74) Laboratory Tests 07/31/21 09:00 Laboratory Tests 07/31/21 09:00 Justifications for Admission Other Justification GRACE SIERRA MD Jul 31, 2021 14:49
[2021-07-31 15:00] VITALS: BP 142/73
--- NOTE | 2021-07-31 17:05 | NUR ---
Discharge Note: NANETTE MANCILLA Discharge instructions and discharge home medications reviewed with Patient and a copy given. All questions have been answered and understanding verbalized. The following instructions and handouts were given: Follow up information and phone numbers, worsening symptoms, and medication education Discontinued lines and drains: IV discontinued from right AC, and telemetry removed, skin intact. Patient discharged to home with spouse via private vehicle.
--- NOTE | 2021-07-31 18:07 | DS ---
HOSPITAL COURSE: This patient is a 50-year-old woman who is a continuity outpatient of Dr. Hutton at [facility]. She also sees Dr. Villafana, Psychiatry regularly. She was admitted in a very challenging state 3 days ago and she is feeling a lot better today after assessment by several subspecialists and reinitiation of her Ativan. She tells me that she is eating better and feels in much better control with the current regimen. Her abdominal cramping and pain is nearly 100% resolved. Appreciate Cardiology, Vascular Surgery, and GI input. Cardiology has cleared her for discharge with outpatient followup if needed, but much less likely to be symptoms related to a cardiac source. Gastroenterology does feel that upper endoscopy is warranted with this presentation and Dr. Stefani Cunningham has told me that she can do that for the patient as an outpatient once she is discharged without a preceding office visit. The patient was very happy to hear this. The patient will follow up with primary care and her psychiatrist in the next 1-2 weeks. We have reinitiated her Ativan and that has helped her, she thinks more than anything else. She has been on it for 10 years and was hoping to stay off of it, but understands that this is a very challenging time. She told me she has some Ativan left at home and does not need a refill of that medication. Prescriptions were written for Bentyl 10 mg before meals and at bedtime as needed, simethicone 80 mg with meals, and pantoprazole 40 mg twice a day. PHYSICAL EXAMINATION: VITAL SIGNS: Today is notable for that the patient has been afebrile. Blood pressure has been in the one-teens over 70s, heart rate is in the 70s-80s and regular. She is breathing comfortably and saturating normally on room air. GENERAL: She is a pleasant 50-year-old woman in good spirits this afternoon, alert and oriented x 3, in no acute distress. HEENT: Unremarkable for acute abnormality. NECK: Soft and supple. No adenopathy or thyromegaly noted. CHEST: Clear to auscultation. HEART: S1, S2 normal. Regular rate and rhythm. No murmurs or gallops are noted. ABDOMEN: Soft, nontender, nondistended. No masses or organomegaly noted. EXTREMITIES: Unremarkable for acute abnormality. Greater than 30 minutes were spent on coordinating this discharge with greater than 50% in counseling and coordination of care, most of which in discussion with the patient, nursing, and GI solution consultant regarding the patient's care plan and progress. FINAL DIAGNOSES: 1. Atypical chest pain, most likely from GI source as well as severe generalized anxiety. 2. 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 Per Dr. Bell, the patient does not need any intervention for this. 3. Irritable bowel syndrome with alternating constipation and diarrhea. 4. Bipolar disorder that has been more active lately. 5. Generalized anxiety disorder. She will restart her Ativan and follow up with her psychiatrist. MICHAEL/VIS DR: MICHAEL/jan TID: [id number] CC: ISAIAS TITUS MD, CHAVO AVILA MD
== END 2021-07-31 17:00 | disposition home or self-care (01) | DRG 880 ==
LOC: ER 15:23 → 2 NORTH 18:00 → OBSVTOIN 07-30 22:17
PROVIDERS: ADMIT Internal Medicine; ATTEND Internal Medicine
DX: F41.1 Generalized anxiety disorder (principal); I77.4 Celiac artery compression syndrome; F31.81 Bipolar II disorder; I20.8 Other forms of angina pectoris; E03.9 Hypothyroidism, unspecified; E78.5 Hyperlipidemia, unspecified; F41.0 Panic disorder [episodic paroxysmal anxiety]; I77.1 Stricture of artery; K58.2 Mixed irritable bowel syndrome; Z98.51 Tubal ligation status; Z20.822 Contact with and (suspected) exposure to COVID-19; R07.89 Other chest pain
CPT/HCPCS: 36415; 71045; 71275; 72100; 74177; 80048; 80053; 80076; 80307; 81001; 81025; 82150; 83690; 84443; 84484; 84703; 85025; 87426; 93005; 96360; 96361; G0378; G0379; J2405; J3010; J7030; Q9967; 99285-25

== ENCOUNTER → 2021-08-11 | Day surgery (SDC) | payer OTHER ==
[~2021-08-11] VITALS: Ht 170.2 cm; Wt 81.8 kg
[~2021-08-11] MED LIST changes: +CRESTOR5 MG PO; +DICY10CA3 PO; +HYDROmorphone 2 MG/ML INJ. IVP PRN; +IV RINGERS,LACTATED 1000ML 1,000 ML IV SCH; +LEVO175T2 PO; +LIDOCAINE 2% PF 5 ML VIAL. ONE; +MORPHINE SULFATE 2 MG/ML INJ. IVP PRN; +PANT40TA77 PO; +PROCHLORPERAZINE 10 MG/2 ML VIAL. IVP PRN; +PROPOFOL 10 MG/ML (20ML) VIAL. IV ONE; +SIME80TA13 PO; +fentaNYL PF VIAL 100 MCG/2 ML VIAL IVP PRN
[2021-08-11 10:16] VITALS: BP 154/74
[2021-08-11 12:10] VITALS: BP 108/56
--- NOTE | 2021-08-12 18:08 | PATHOLOGY ---
[facility] Accession Number: [id number] . 01 Material submitted: . PART A: small bowel - SMALL BOWEL BX PART B: ANTRUM - ANTRUM AND BODY BX. Modifiers: body PART C: esophagus - DISTAL ESOPHAGUS BX. Modifiers: distal PART D: esophagus - MID ESOPHAGUS BX. Modifiers: mid PART E: ileum - TERMINAL ILEUM BX. Modifiers: TERMINAL PART F: colon - RIGHT COLON BX. Modifiers: right PART G: colon - TRANSVERSE POLYP. Modifiers: transverse PART H: colon - LEFT COLON BX. Modifiers: left . 01 Clinical history: . EPIGASTRIC, HX OF STRICTURE/SCREENING EGD COLON . 02 Diagnosis: A. Small bowel biopsies: - No diagnostic abnormalities. . B. Gastric biopsies, gastric body and antrum: - Mild reactive gastropathy. . C. 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 . D. Esophageal biopsies, middle esophagus: - Segments of mildly hyperplastic squamous esophageal mucosa. . E. Small intestine mucosa, terminal ileum biopsies: - Focally hyperplastic mucosal-associated lymphoid tissue. . F. Colonic mucosa, right colon biopsies: - No diagnostic abnormalities. . G. Colon biopsies, transverse colon polyp: - Tubular adenoma. . H. Colonic mucosa, left colon biopsies: - No diagnostic abnormalities. (JPM/db; 08/12/2021) LBQ 08/12/2021 1716 Local . 02 Comment: Sections of the small bowel biopsy reveal segments of duodenal mucosa. Where best oriented, the mucosal villi show no sprue-like changes or significant inflammatory changes. . Sections of the gastric biopsy reveal segments of gastric body and antral mucosa. The gastric body mucosa shows focal congestion and no significant inflammation. The gastric antral mucosa shows congestion, mild foveolar hyperplasia, and very mild chronic inflammation. A properly controlled immunoperoxidase stain for Helicobacter is negative for Helicobacter organisms. The findings are consistent with mild reactive gastropathy. . Sections of the distal esophageal biopsy reveal segments of hyperplastic squamous esophageal mucosa with contiguous and separate segments of gastric mucosa and with focally contiguous columnar-lined mucosa showing moderate chronic inflammation and intestinal metaplasia with goblet cells consistent with Loja's change. There is no dysplasia or evidence of malignancy. . Sections of the middle esophageal biopsy reveal segments of tangentially oriented mildly hyperplastic squamous esophageal mucosa. . Sections of the terminal ileum biopsy reveal segments of small intestine mucosa containing focally hyperplastic mucosa-associated lymphoid tissue. Where best oriented, the mucosal villi show no sprue-like changes or significant inflammatory changes. . Sections of the right colon and left colon biopsies appear similar and reveal segments of colonic mucosa containing several mucosal-associated lymphoid aggregates. There is no evidence of a chronic destructive colitis, lymphocytic colitis, or collagenous colitis. . Sections of the transverse colon biopsy reveal a tubular adenoma showing no high grade dysplasia or evidence of malignancy. (JPM/db; 08/12/2021) . Special stain performed: Immunoperoxidase stain for Helicobacter on B1 . 02 Electronically signed: . Roderick Naylor MD, Pathologist NPI- [id number] . 01 Gross description: . A. The specimen is received in formalin, labeled "Welch, Yue, small bowel BX". Received are 3 segments of pale venegas tissue ranging in size from 0.2-0.4 cm in maximum dimension. The specimen is entirely submitted in cassette A1. . B. The specimen is received in formalin, labeled "Welch, Yue, antrum and body BX". Received are 3 segments of pale venegas tissue ranging in size from 0.2-0.3 cm in maximum dimension. The specimen is entirely submitted in cassette B1. . C. The specimen is received in formalin, labeled "Welch, Yue, distal esophagus BX". Received are 3 segments of pale venegas tissue ranging in size from 0.2-0.4 cm in maximum dimension. The specimen is entirely submitted in cassette C1. . D. The specimen is received in formalin, labeled "Welch, Yue, mid esophagus BX". Received are 2 segments of pale white tissue measuring 0.3 and 0.4 cm in maximum dimension. The specimen is entirely submitted in cassette D1. . E. The specimen is received in formalin, labeled "Welhc, Yue, terminal ileum". Received are 2 segments of pale venegas tissue both measuring 0.3 cm in maximum dimension. Specimen is entirely submitted in cassette E1. . F. The specimen is received in formalin, labeled "Welch, Yue, right colon BX". Received are 4 segments of pale venegas tissue ranging in size from 0.3-0.5 cm in maximum dimension. The specimen is entirely submitted in cassette F1. . G. The specimen is received in formalin, labeled "Welch, Yue, transverse polyp". Received are 3 segments of pale venegas tissue each measuring 0.3 cm in maximum dimension. The specimen is entirely submitted in cassette G1. . H. The specimen is received in formalin, labeled "Welch, Yue, left colon BX". Received are 3 segments of venegas tissue ranging in size from 0.3-0.7 cm in maximum dimension. The specimen is entirely submitted in cassette H1. ([facility]; 08/11/2021) NRI/NRI 08/11/[address] [place] [address] . 02 Pathologist provided ICD-10: K31.9, K20.90, K22.70, D12.3, R10.13, Z87.19, Z12.11 . 02 CPT . 352688, 212816, 759365, 569423, 064633, 277465, 124277, 525454, [id number] Specimen Comment: A courtesy copy of this report has been sent to [phone], [phone] Specimen Comment: [id number] Specimen Comment: Report sent to / DR LUND Specimen Comment: A duplicate report has been generated due to demographic updates. Performed at: 01 [facility] [address], [place], [place] [id number] MD Ayaz Alvarez MD Phone: [phone] Performed at: 02 [facility] [address] [place], [place] [id number] MD Roderick Naylor MD Phone: [phone]
== END | disposition home or self-care (01) ==
LOC: SURG 09:52
PROVIDERS: ATTEND Internal Medicine Gastroenterology
DX: Z12.11 Encounter for screening for malignant neoplasm of colon (principal); R10.13 Epigastric pain; K21.00 Gastro-esophageal reflux disease with esophagitis, without bleeding; K22.70 Barrett's esophagus without dysplasia; D12.3 Benign neoplasm of transverse colon; K63.89 Other specified diseases of intestine; K31.89 Other diseases of stomach and duodenum; K64.0 First degree hemorrhoids; K29.50 Unspecified chronic gastritis without bleeding; E78.00 Pure hypercholesterolemia, unspecified; E11.9 Type 2 diabetes mellitus without complications; E03.9 Hypothyroidism, unspecified; M19.90 Unspecified osteoarthritis, unspecified site; F41.9 Anxiety disorder, unspecified; F32.9 Major depressive disorder, single episode, unspecified; Z98.51 Tubal ligation status; Z98.890 Other specified postprocedural states; Z79.899 Other long term (current) drug therapy; Z87.891 Personal history of nicotine dependence; Z88.8 Allergy status to other drugs, medicaments and biological substances; Z87.19 Personal history of other diseases of the digestive system
CPT/HCPCS: 43239; 45380; 81025; J2704; 88305; 88342

== ENCOUNTER → 2021-09-09 | Outpatient (CLI) | payer OTHER ==
[2021-08-11 12:10] VITALS: BP 108/56
[~2021-09-09] MED LIST changes: -HYDROmorphone 2 MG/ML INJ. IVP PRN; -IV RINGERS,LACTATED 1000ML 1,000 ML IV SCH; -LIDOCAINE 2% PF 5 ML VIAL. ONE; -MORPHINE SULFATE 2 MG/ML INJ. IVP PRN; -PROCHLORPERAZINE 10 MG/2 ML VIAL. IVP PRN; -PROPOFOL 10 MG/ML (20ML) VIAL. IV ONE; +REGADENOSON 0.4 MG/5 ML DISP.SYRIN. IV ONE; -fentaNYL PF VIAL 100 MCG/2 ML VIAL IVP PRN
--- NOTE | 2021-09-09 17:32 | RAD ---
MR#: [id number] Date of Study: 09/09/2021 Ordering Physician: ALICIA PETERSON, Referring Physician: TALON BOOTHE Tech: RT Kourtney (R) (N) APPROVED REPORT Test Type: Pharmacological Stress Nurse/Tech: Stephani Sarkar RN Test Indications: Shortness of breath and diaphoresis Cardiac History: Hypertension, Family history Medications: See Electronic Medical Record Medical History: See Electronic Medical Record Resting ECG: SR Resting Heart Rate: 76 bpm Resting Blood Pressure: 123/75mmHg Pretest Chest Pain: No chest pain Nurse/Tech Notes S1,S2 and lungs clear to auscultation. Consent: The procedure was explained to the patient in lay terms. Informed consent was witnessed. Haim eout was entered into [employer]. History and Stress Test performed by RT Iona (R) (N) Pharm. Details Pharmacologic stress testing was performed using 0.4mg per 5ml of regadenoson given intravenously ove r 7-10 seconds. Stress Symptoms Dyspnea POST EXERCISE Reason for Termination: Infusion complete Target HR: No Max HR: 124 bpm 86% of Maximum Predicted HR: 144 bpm Max Blood Pressure: 127/62mmHg Blood Pressure response to exercise: Normal blood pressure response during stress. Heart Rate response to exercise: WNL Chest Pain: No. Arrhythmia: No. ST Change: Yes. Slight ST change in leads II,III,aVR and v3-v6 which returned to baseline by end of s tudy INTERPRETATION Stress EKG Conclusion: No evidence of stress-induced EKG changes. Baseline EKG demonstrates diffuse trivial ST segment depression Imaging Protocol IMAGE PROTOCOL: Rest Tc-99m/stress Tc-99m 1 day Rest: Stress: Viability: Radiopharm.Tc99m [id number] Sestamibi Dose10.2mCi 33mCi Duration 15min. 15min. Img Date 09/09/2021 09/09/2021 Inj-Img [id number]. 60min. Rest Admin Site:IV - Right AntecubitalAdministrator:Curry Raffy, DIRECTOR BUSINESS DEVELOPMENT Stress Admin Site: IV - Right AntecubitalAdministrator: Curry Bullis, DIRECTOR BUSINESS DEVELOPMENT STRESS DATA End Diast. Vol.72.0mlAv. Heart Rate89.0bpm End Syst. Vol.9.0mlCO Index BSA0.0L/min Myocardial Znhh127.0gEject. Bkqzjdjg28.0% Stress Rates Pk. Fill Rate3.51EDV/secLVtime Pk. Fill 106.37msec Pk. Empty Rate4.04ESV/secLVtime Pk. Iolat415.65msec 05/30 Pk. Fill2.28EDV/sec Stress Scores Regional WT0.00Summed WT0.00 Regional WM0.00Summed WM0.00 The rest and stress images show normal perfusion, normal contraction and thickening. LV Perf. Quant 17 Seg. SSS0.00 17 Seg. SRS0.00 17 Seg. SDS0.00 Stress Defect Extent (% LAD)0.00Rest Defect Extent (% LAD)0.00Rev. Defect Extent (% LAD)0.00 Stress Defect Extent (% LCX) 0.00Rest Defect Extent (% LCX)0.00Rev. Defect Extent (% LCX)0.00 Stress Defect Extent (% RCA)0.00Rest Defect Extent (% RCA)0.00Rev. Defect Extent (% RCA)0.00 Stress Defect Extent (% ANGEL)0.00Rest Defect Extent (% ANGEL)0.00Rev. Defect Extent (% ANGEL)0.00 Other Information Quality:Average Risk Assessment: Low Risk Conclusion 1. Mildly abnormal resting EKG with diffuse half millimeter ST segment depressions. No evidence of s tress-induced EKG changes to suggest ischemia 2. Normal perfusion at stress and rest. 3. Normal EF greater than 60% 4. Low risk study Signed by : Brian Lam, Electronically Approved : 09/09/2021 17:32:21
--- NOTE | 2021-09-11 15:59 | CARD ---
MR#: [id number] Date of Study: 09/09/2021 Ordering Physician: ALICIA PETERSON, Referring Physician: Rell BOOTHE: Jeanmarie Gaviria [facility] APPROVED REPORT EXAM: Two-dimensional and M-mode echocardiogram with Doppler and color Doppler. Other Information Quality : AverageHR: 72bpm Rhythm : NSR INDICATION Dyspnea 2D DIMENSIONS Left Atrium(2D)3.3 (1.6-4.0cm)IVSd0.8 (0.7-1.1cm) Aortic Root(2D)3.0 (2.0-3.7cm)LVDd4.7 (3.9-5.9cm) LVOT Diameter1.9 (1.8-2.4cm)PWd0.8 (0.7-1.1cm) LA Cexktk02 (18-58mL)LVDs2.9 (2.5-4.0cm) FS (%) 39.2 %SV72.7 ml LVEF(%)69.6 (>50%) Aortic Valve AoV Peak Rufino.114.9cm/sAoV VTI21.9cm AO Peak GR.5.3mmHgLVOT Peak Rufino.80.2cm/s LVOT VTI 15.66cmAO Mean GR.3mmHg PATRICK (VMAX)1.77es6ATC (VTI)2.14cm2 Mitral Valve MV E Jlbivoch32.1cm/sMV DECEL TQWE377ry MV A Pakpnhov98.3cm/sMV JJU96ys E/A Ratio0.9MVA (PHT)4.34cm2 TDI E/Lateral E'9.1E/Medial E'12.0 Pulmonary Valve PV Peak Eegirrtm30.6cm/sPV Peak Grad.3mmHg Tricuspid Valve TR P. Rfgethaj903fs/sTR Peak Gr.24mmHg Pulmonary Vein S1 Davmkbku34.1cm/sD2 Repaunbs50.8cm/s LEFT VENTRICLE The left ventricle is normal size. There is normal left ventricular wall thickness. The left ventricu lar systolic function is normal and the ejection fraction is within normal range. EF 55% There is nor mal LV segmental wall motion. Transmitral Doppler flow pattern is Grade I-abnormal relaxation pattern . No left ventricle thrombus noted on this study. There is no ventricular septal defect visualized. T here is no left ventricular aneurysm. There is no mass noted in the left ventricle. RIGHT VENTRICLE The right ventricle is normal size. There is normal right ventricular wall thickness. The right ventr icular systolic function is normal. ATRIA The left atrium size is normal. The right atrium size is normal. The interatrial septum is intact wit h no evidence for an atrial septal defect or patent foramen ovale as noted on 2-D or Doppler imaging. AORTIC VALVE The aortic valve is normal in structure and function. Doppler and Color Flow revealed no significant aortic regurgitation. There is no significant aortic valvular stenosis. There is no aortic valvular v egetation. MITRAL VALVE The mitral valve is normal in structure and function. There is no evidence of mitral valve prolapse. There is no mitral valve stenosis. Doppler and Color-flow revealed mild mitral regurgitation. TRICUSPID VALVE The tricuspid valve is normal in structure and function. Doppler and Color Flow revealed trace tricus pid regurgitation. There is no tricuspid valve prolapse or vegetation. There is no tricuspid valve st enosis. PULMONIC VALVE Doppler and Color Flow revealed no pulmonic valvular regurgitation. There is no pulmonic valvular ejronimo nosis. GREAT VESSELS The aortic root is normal in size. The ascending aorta is normal in size. The IVC is normal in size a nd collapses >50% with inspiration. PERICARDIAL EFFUSION There is no pleural effusion. There is no evidence of significant pericardial effusion. Critical Notification Critical Value: No <Conclusion> The left ventricular systolic function is normal and the ejection fraction is within normal range. EF 55% There is normal LV segmental wall motion. Signed by : Brian Lam, Electronically Approved : 09/11/2021 15:59:34
== END ==
LOC: NM 07:40
PROVIDERS: ATTEND Internal Medicine Cardiovascular Disease
DX: I34.0 Nonrheumatic mitral (valve) insufficiency (principal); R94.31 Abnormal electrocardiogram [ECG] [EKG]; R06.02 Shortness of breath
CPT/HCPCS: 78452; 93017; 93306; A9500; J2785; C8929